=== PATIENT | female | born 1980 | race Caucasian/White ===

== ENCOUNTER 2021-10-17 07:14 | Outpatient (REF) | payer OTHER, SELFPAY ==
--- NOTE | ~2021-10-17 | XR_ITS ---
EXAMINATION: XR ANKLE, RIGHT CLINICAL INFORMATION: Pain. M25.571 COMPARISON: None TECHNIQUE: Right ankle is imaged in 4 views. FINDINGS: Normal bony mineralization. No fracture, dislocation, destructive process, or arthropathy. The malleoli are intact. The ankle mortise is symmetric. No joint narrowing or erosive change. The subtalar joint is unremarkable. XR/XR ankle RT min 3V IMPRESSION: No fracture, dislocation, or arthropathy.
== END 2021-10-17 07:15 | disposition home or self-care (01) ==
LOC: HO.HOSX 07:14
PROVIDERS: Visit Provider Physician Assistant
DX: S93.401A Sprain of unspecified ligament of right ankle, initial encounter (principal)
CPT/HCPCS: 73610

== ENCOUNTER 2021-10-22 16:28 | Outpatient (REF) | payer OTHER, SELFPAY ==
--- NOTE | ~2021-10-22 | MM_ITS ---
EXAMINATION: MM SCREENING DIGITAL BREAST TOMOSYNTHESIS, BILATERAL CLINICAL INFORMATION: Screening. Asymptomatic. The lifetime risk of breast cancer based on the Tyrer-Cuzick Model is 8.3%. COMPARISON: Mammography: None. TECHNIQUE: Digital breast tomosynthesis is performed in both the craniocaudal and mediolateral oblique views along with computer-aided detection (CAD). Synthesized 2D images are generated from the tomosynthesis. FINDINGS: There are scattered areas of fibroglandular density (ACR BI-RADS breast composition Category b). No abnormal mass or grouping of microcalcifications is seen within the right breast. Within the central upper outer aspect of the left breast there is a grouping of approximately 4 calcifications without linear or branching forms for which spot magnification views are recommended. MM/MM tomosynthesis screening BI IMPRESSION: Left breast calcifications for further evaluation with spot magnification views. ASSESSMENT: BI-RADS 0: Incomplete - Need Additional Imaging Evaluation RECOMMENDATION: 1. Additional views of the left breast. 2. Targeted ultrasound if warranted after review of the additional views. 3. Radiology department staff will contact the patient for additional imaging. This patient's information was entered into a reminder system with a target due date for their next mammogram.
== END 2021-10-22 16:29 | disposition home or self-care (01) ==
LOC: HO.MAMMO 16:28
PROVIDERS: PCP Nurse Practitioner Family; Visit Provider Nurse Practitioner Family
DX: Z12.31 Encounter for screening mammogram for malignant neoplasm of breast (principal)
CPT/HCPCS: 77063; 77067

== ENCOUNTER 2021-10-29 16:30 | Outpatient (REF) | payer OTHER, SELFPAY ==
--- NOTE | ~2021-10-29 | CT_ITS ---
EXAMINATION: CT CHEST WITHOUT CONTRAST CLINICAL INFORMATION: Other abnormalities of breathing. Difficulty breathing, bronchitis. COMPARISON: None TECHNIQUE: Multidetector volumetric CT imaging of the chest was done. Axial MIP volume rendering provided. Sagittal and coronal reformatted images were obtained. This CT examination was performed using dose optimization techniques as appropriate, variously including the following: *Automated exposure control *Adjustment of mA and/or kV according to patient size (this includes techniques or standardized protocols for targeted exams where dose is matched to indication/reason for exam; i.e. extremities or head) *Use of iterative reconstruction technique DLP: 204 mGy-cm FINDINGS: HONE OPERATOR: Unremarkable chest exam. LUNGS: The lungs are well expanded and clear of acute pneumonic process. There is no pulmonary nodule, mass or ground-glass density. There is lingular atelectasis. MEDIASTINUM: The thyroid lobes are symmetrical and normal. The central trachea and the bronchi are widely patent. No abnormal sized mediastinal or hilar lymph nodes are seen. There is no pericardial effusion. The heart size and the great vessels are normal caliber. PLEURA: There is no pleural effusion. No pleural mass or thickening. AXILLA: No lymphadenopathy. UPPER ABDOMEN: The visualized liver, spleen, pancreas, and bilateral adrenal glands are unremarkable. There is evidence of previous gastric bypass surgery changes. The visualized gallbladder, adrenal glands and kidneys are unremarkable. A small epigastric anterior abdominal wall hernia with fat within it is noted. OSSEOUS STRUCTURES: No lytic or sclerotic process seen. CT/CT chest wo con IMPRESSION: Unremarkable CT chest without contrast. Fleischner guidelines were followed.
== END 2021-10-29 16:31 | disposition home or self-care (01) ==
LOC: HO.CT 16:30
PROVIDERS: PCP Nurse Practitioner Family; Visit Provider Nurse Practitioner Family
DX: R06.89 Other abnormalities of breathing (principal)
CPT/HCPCS: 71250

== ENCOUNTER 2021-10-30 16:01 | Outpatient (REF) | payer OTHER, SELFPAY ==
--- NOTE | 2021-10-30 | PFT_ITS ---
FLOWS: FEV1 of 92% of predicted at 2.61 L. FVC 81% of predicted at 2.80 L. FEV1 to FVC ratio of 0.93. No bronchodilator response. LUNG VOLUMES: Total lung capacity 78% of predicted at 3.75 L. Residual volume 53% of predicted at 0.81 L. Slow vital capacity 90% of predicted at 2.94 L. Expiratory reserve volume 45% of predicted at 0.50 L. Diffusion capacity is normal. IMPRESSION: Mild restrictive ventilatory defect with no bronchodilator response. Decreased expiratory reserve volume suggests extrathoracic restriction likely secondary to abdominal obesity. Heraclio Blue MD AP/MODL / [id number]
== END 2021-10-30 16:02 | disposition home or self-care (01) ==
LOC: HO.RESP 16:01
PROVIDERS: PCP Nurse Practitioner Family; Visit Provider Nurse Practitioner Family
DX: R06.00 Dyspnea, unspecified (principal)
CPT/HCPCS: 94060; 94727; 94729

== ENCOUNTER → 2022-01-29 14:58 | Outpatient (REF) | payer OTHER, SELFPAY ==
--- NOTE | 2022-01-29 15:01 | CA_ITS ---
Transthoracic Echocardiogram Patient (Last, First, Middle): Kellen Hillman A Gender: Female Date of : 1980 Age: 41 Procedure Date: 01/29/2022 Procedure Type: Transthoracic Echocardiogram Location: OP Height: 157.48 cm Weight: 89.81 kg BSA: 1.90 m2 Heart Rate: bpm BP: 130 / 80 mmHg Environmental Monitoring Technician: SB Referring MD: Mono Menard MD Printing Assistant: Eder Vieyra MD Symptoms: I27.20 - Pulmonary hypertension, unspecified Study Quality: Adequate ECG Rhythm: Sinus Conclusions: - 1. Low normal LV systolic function with LVEF of 50-55% with normal diastolic filling 2. Trivial aortic regurgitation 3. Normal RV systolic pressure 4. No gross pericardial effusion Findings Left Ventricle Normal left ventricular cavity size. There is normal left ventricular wall thickness. The left ventricular systolic function is low normal. The visually estimated ejection fraction is between 50-55%. Spectral Doppler is indicative of a normal filling pattern. Possible basal inferior wall hypokinesis Right Ventricle Normal right ventricular cavity size and systolic function. Atria The left atrium is normal in size. There is lipomatous hypertrophy of the interatrial septum. Interatrial shunt cannot be excluded. The right atrium is normal in size. Aortic Valve Normal aortic valve structure and function. There is no aortic valve stenosis. There is trace (trivial) aortic valve regurgitation. Mitral Valve There is mild anterior and posterior mitral leaflet thickening. There is trace mitral valve regurgitation. There is no mitral valve stenosis. Pulmonic Valve The pulmonic valve is likely normal. There is trace pulmonic valve regurgitation. Tricuspid Valve Normal tricuspid valve structure. There is trace tricuspid valve regurgitation. The right ventricular systolic pressure is normal. The right ventricular systolic pressure is 24 mmHg. Normal right atrial pressure. There is no evidence of pulmonary hypertension. Great Vessels All visible segments of the aorta are normal in size. The visualized portions of the pulmonary artery and branches are normal. Venous The inferior vena cava is normal in size and collapses greater than 50% with inspiration. Pericardium/Pleural There is no evidence of pericardial effusion. Prior Study Comparison No significant change compared to prior study dated: 06/08/2012. Measurements 2D Linear Measurements IVSd: 1.13 0.6-0.9/0.6-1.0 cm LVIDd: 4.86 3.9-5.3/4.2-5.9 cm LVIDd Index: 2.56 2.4-3.2/2.2-3.1 cm/m2 LVIDs: 3.55 2.0-3.6 cm LVPWd: 1.03 0.7-1.1 cm LA Diam: 3.50 2.7-3.8/3.0-4.0 cm LAIDs Index: 1.84 1.5-2.3 cm/m2 LV Mass: 245.97 67-162/88-224 g LV Mass Index: 129.46 43-95/49-115 g/m2 2D Systolic Function EF 4C: 54.20 >55% EF 2C: 49.90 >55% EF BiP: 51.50 >55% Mitral Valve MV Pk E: 0.91 MV PK A: 0.76 MV Decel Time: 171.00 E/A: 1.20 E'Lateral: 7.83 E'Medial: 8.16 E/E' Med: 11.20 E/E' Lat: 11.60 PHT: 50.00 MVA PHT: 4.40 Decel [place]: 5.32 Aortic Valve AoV Pk Cole: 1.23 AoV Mn Cole: 0.86 AoV VTI: 0.22 AoV Pk Grad: 6.00 Aov Mn Grad: 3.00 LVOT LVOT Pk Cole: 0.76 LVOT Mn Cole: 0.52 LVOT VTI: 0.15 LVOT Pk Grad: 2.00 LVOT Mn Grad: 1.00 Diastolic Function MV Pk E: 0.91 MV Pk A: 0.76 E/A: 1.20 E'Medial: 8.16 E/E' Med: 11.20 E' Laterial: 7.83 E/E' Lat: 11.60 Right Ventricle TAPSE (mm): 14.10 TVS' Cole: 8.27 Tricuspid Valve TR Pk Cole: 1.99 TR Pk Grad: 16.00 RA Press: 8.00 RVSP: 24.00 Great Vessels Aorta Sinus of Valsalva: 3.80 2.0-3.5 cm Ao Asc: 3.40 2.1-3.4 cm Pulmonary Veins Pulm Vein S/D 1.00 Pulmonary Valve PV Pk Cole: 0.69 Peak PV Grad: 2.00 Updated in Other Vendor System with Status of Final Eder Azalia MD electronically signed on 01/30/2022 8:47:46 AM with status of Final
== END ==
LOC: HO.CARD 14:58
PROVIDERS: PCP Nurse Practitioner Family; Visit Provider Hospitalist
DX: I27.20 Pulmonary hypertension, unspecified (principal)
CPT/HCPCS: 93306

== ENCOUNTER 2022-03-20 15:58 | Outpatient (REF) | payer OTHER, SELFPAY ==
[2022-03-20 16:28] LABS: MANUAL DIFF FLAG NO
[2022-03-20 16:35] LABS: Basophils Absolute Auto 0.1 X10*3/uL (0.0-0.2); Basophils Percent Auto 0.7 % (0-2); Eosinophils Absolute Auto 0.2 X10*3/uL (0.0-0.4); Eosinophils Percent Auto 2.2 % (0-4); Hematocrit 31.3 % (37.0-47.0); Hemoglobin 9.4 g/dl (12.0-16.0); Imm Gran Abs Auto 0.03 X10*3/uL (0.00-0.03); Imm Gran Pct Auto 0.3 % (0.0-0.4); Lymphocytes Absolute Auto 2.2 X10*3/uL (1.2-4.9); Lymphocytes Percent Auto 24.6 % (20-40); Mean Corpuscular Hemoglobin 22.3 pg (27.0-33.0); Mean Corpuscular Volume 74.3 fL (80.0-98.0); Mean Platelet Volume 10.5 fL (9.4-12.3); Monocytes Absolute Auto 0.8 X10*3/uL (0.1-1.2); Monocytes Percent Auto 8.4 % (2-11); Neutrophils Absolute Auto 5.7 x10*3/uL (2.0-8.3); Neutrophils Percent Auto 63.8 % (45-73); Platelet Count 397 X10*3/uL (160-400); Red Blood Count 4.21 X10*6/uL (4.20-5.50); Red Cell Distribution Width 15.4 % (11.0-16.0)
[2022-03-20 16:41] LABS: D Dimer High Sensitivity 182 NG/ML
[2022-03-20 16:53] LABS: Anion Gap 11 (12-20); Blood Urea Nitrogen 18 mg/dL (9-16); Calcium 9.4 mg/dL (8.4-10.2); Carbon Dioxide 26 mmol/L (22-29); Chloride 104 mmol/L (96-108); Estimated Glomerular Filt Rate > 60; Glucose Random 95 mg/dL (60-115); Potassium 4.4 mmol/L (3.3-5.1); Sodium 137 mmol/L (135-145)
[2022-03-20 17:15] LABS: Erythrocyte Sedimentation Rate 31 MM/HR (0-20)
[2022-03-21 18:22] LABS: Scleroderma 70 Antibody <1.0 NEG AI (<1.0 NEG)
[2022-03-22 13:56] LABS: Anti Nuclear Antibody Screen NEGATIVE (NEGATIVE)
== END 2022-03-20 15:59 | disposition home or self-care (01) ==
LOC: HO.LAB 15:58
PROVIDERS: PCP Nurse Practitioner Family; Visit Provider Hospitalist
DX: J98.4 Other disorders of lung (principal); I27.20 Pulmonary hypertension, unspecified; R00.0 Tachycardia, unspecified; R06.00 Dyspnea, unspecified
CPT/HCPCS: 36415; 80048; 85025; 85379; 85652; 86038; 86039; 86235

== ENCOUNTER 2022-03-23 10:12 | Outpatient (REF) | payer OTHER, SELFPAY ==
[2022-03-23 11:10] LABS: MANUAL DIFF FLAG NO
[2022-03-23 11:19] LABS: Basophils Absolute Auto 0.1 X10*3/uL (0.0-0.2); Basophils Percent Auto 0.8 % (0-2); Eosinophils Absolute Auto 0.1 X10*3/uL (0.0-0.4); Eosinophils Percent Auto 1.9 % (0-4); Hematocrit 30.5 % (37.0-47.0); Hemoglobin 9.3 g/dl (12.0-16.0); Imm Gran Abs Auto 0.02 X10*3/uL (0.00-0.03); Imm Gran Pct Auto 0.3 % (0.0-0.4); Immature Retic Fraction 16.9 % (3.0-15.9); Lymphocytes Absolute Auto 1.5 X10*3/uL (1.2-4.9); Mean Corpuscular HGB Conc 30.5 g/dl (31.0-35.0); Mean Corpuscular Hemoglobin 22.4 pg (27.0-33.0); Mean Corpuscular Volume 73.5 fL (80.0-98.0); Mean Platelet Volume 10.7 fL (9.4-12.3); Monocytes Absolute Auto 0.8 X10*3/uL (0.1-1.2); Monocytes Percent Auto 11.2 % (2-11); Neutrophils Absolute Auto 4.7 x10*3/uL (2.0-8.3); Neutrophils Percent Auto 64.8 % (45-73); Platelet Count 378 X10*3/uL (160-400); Red Blood Count 4.15 X10*6/uL (4.20-5.50); Red Cell Distribution Width 15.5 % (11.0-16.0); Retic HGB Equivalent 26.1 pg (30.0-35.0); Reticulocyte Percent 1.3 % (0.5-1.8); Reticulocytes Absolute 0.052 X10*6/uL (0.026-0.095); White Blood Count 7.3 X10*3/uL (4.8-10.8)
[2022-03-23 12:28] LABS: Iron 30 mcg/dL (30-160); Percent Iron Saturation 7 % (15-50); Total Iron Binding Capacity 416 mcg/dL (228-428); Unsaturated Iron Binding 386 ug/dL
[2022-03-23 12:50] LABS: Ferritin 4 ng/mL (10-250)
[2022-03-23 13:02] LABS: Folate 10.3 ng/mL (> or = 4.0); Vitamin B12 210 pg/mL (200-900)
== END 2022-03-23 10:13 | disposition home or self-care (01) ==
LOC: HO.HMGCLDS 10:12
PROVIDERS: PCP Nurse Practitioner Family; Visit Provider Nurse Practitioner Family
DX: D64.9 Anemia, unspecified (principal)
CPT/HCPCS: 36415; 82607; 82728; 82746; 83540; 85025; 85045

== ENCOUNTER 2022-03-25 16:54 | Outpatient (REF) | payer OTHER, SELFPAY ==
[2022-03-26 07:45] LABS: FIT Int Ctl YES; FIT1 NEGATIVE (NEGATIVE); FIT2 NEGATIVE (NEGATIVE)
== END 2022-03-25 16:55 | disposition home or self-care (01) ==
LOC: HO.LNP 16:54
PROVIDERS: Visit Provider Nurse Practitioner Family
DX: D64.9 Anemia, unspecified (principal)
CPT/HCPCS: 82274

== ENCOUNTER → 2022-04-24 15:58 | Outpatient (REF) | payer OTHER, SELFPAY | LOC: HO.SL 15:58 | PROVIDERS: PCP Nurse Practitioner Family; Visit Provider Hospitalist | DX: G47.33 Obstructive sleep apnea (adult) (pediatric) (principal) | CPT/HCPCS: 95806 ==

== ENCOUNTER → 2022-06-27 14:27 | Outpatient (BNVA) | payer OTHER, SELFPAY | PROVIDERS: PCP Nurse Practitioner Family; Visit Provider Hospitalist | DX: Z13.89 Encounter for screening for other disorder (principal) ==

== ENCOUNTER 2022-10-25 13:38 | Outpatient (REF) | payer OTHER, SELFPAY ==
[2022-10-25 14:19] LABS: MANUAL DIFF FLAG NO
[2022-10-25 14:29] LABS: Basophils Absolute Auto 0.1 X10*3/uL (0.0-0.2); Basophils Percent Auto 0.9 % (0-2); Eosinophils Absolute Auto 0.2 X10*3/uL (0.0-0.4); Eosinophils Percent Auto 2.1 % (0-4); Hematocrit 32.5 % (37.0-47.0); Hemoglobin 9.7 g/dl (12.0-16.0); Imm Gran Abs Auto 0.03 X10*3/uL (0.00-0.03); Imm Gran Pct Auto 0.4 % (0.0-0.4); Lymphocytes Absolute Auto 1.8 X10*3/uL (1.2-4.9); Lymphocytes Percent Auto 23.4 % (20-40); Mean Corpuscular HGB Conc 29.8 g/dl (31.0-35.0); Mean Corpuscular Hemoglobin 22.3 pg (27.0-33.0); Mean Corpuscular Volume 74.7 fL (80.0-98.0); Mean Platelet Volume 10.4 fL (9.4-12.3); Monocytes Absolute Auto 0.6 X10*3/uL (0.1-1.2); Monocytes Percent Auto 8.1 % (2-11); Neutrophils Absolute Auto 5.1 x10*3/uL (2.0-8.3); Neutrophils Percent Auto 65.1 % (45-73); Platelet Count 421 X10*3/uL (160-400); Red Blood Count 4.35 X10*6/uL (4.20-5.50); Red Cell Distribution Width 17.4 % (11.0-16.0); White Blood Count 7.8 X10*3/uL (4.8-10.8)
[2022-10-25 15:09] LABS: Iron 16 mcg/dL (30-160); Percent Iron Saturation 5 % (15-50); Total Iron Binding Capacity 317 mcg/dL (228-428); Unsaturated Iron Binding 301 ug/dL
[2022-10-25 15:29] LABS: Ferritin 5 ng/mL (10-250); TSH reflex Free T4 2.05 uIU/mL (0.32-4.0)
== END 2022-10-25 13:39 | disposition home or self-care (01) ==
LOC: HO.LAB 13:38
PROVIDERS: PCP Nurse Practitioner Family; Visit Provider Hospitalist
DX: J45.909 Unspecified asthma, uncomplicated (principal); R00.0 Tachycardia, unspecified; D64.9 Anemia, unspecified; R06.00 Dyspnea, unspecified; J98.4 Other disorders of lung; G47.33 Obstructive sleep apnea (adult) (pediatric); U09.9 Post COVID-19 condition, unspecified
CPT/HCPCS: 36415; 82728; 83540; 84443; 85025

== ENCOUNTER 2022-10-29 16:00 | Outpatient (REF) | payer OTHER, SELFPAY ==
--- NOTE | ~2022-10-29 | MM_ITS ---
EXAMINATION: MM SCREENING DIGITAL BREAST TOMOSYNTHESIS, BILATERAL CLINICAL INFORMATION: Screening. Asymptomatic. The lifetime risk of breast cancer based on the Tyrer-Cuzick Model is 7%. COMPARISON: Mammography: 10/22/2021 (baseline) TECHNIQUE: Digital breast tomosynthesis is performed in both the craniocaudal and mediolateral oblique views along with computer-aided detection (CAD). Synthesized 2D images are generated from the tomosynthesis. Additional right MLO view is provided. FINDINGS: There are scattered areas of fibroglandular density (ACR BI-RADS breast composition Category b). There are no significant masses, abnormal calcifications, or other abnormalities. Parenchymal pattern is similar to prior exam. There are scattered stable bilateral minor asymmetries. No developing density or architectural abnormality. The axilla and skin contours are unremarkable. MM/MM tomosynthesis screening BI IMPRESSION: No mammographic evidence of malignancy. ASSESSMENT: BI-RADS 2: Benign RECOMMENDATION: Routine annual mammography screening. This patient's information was entered into a reminder system with a target due date for their next mammogram.
== END 2022-10-29 16:01 | disposition home or self-care (01) ==
LOC: HO.MAMMO 16:00
PROVIDERS: PCP Nurse Practitioner Family; Visit Provider Nurse Practitioner Family
DX: Z12.31 Encounter for screening mammogram for malignant neoplasm of breast (principal)
CPT/HCPCS: 77063; 77067

== ENCOUNTER → 2022-11-12 14:42 | Outpatient (BNV) | payer OTHER, SELFPAY | PROVIDERS: PCP Nurse Practitioner Family; Visit Provider Internal Medicine Medical Oncology | DX: D50.9 Iron deficiency anemia, unspecified (principal) | CPT/HCPCS: 99204; 99213 ==

== ENCOUNTER 2022-11-29 11:37 | Outpatient (REF) | payer OTHER, SELFPAY | END 2022-11-29 11:38 | disposition home or self-care (01) | LOC: HO.MDS 11:37 | PROVIDERS: Visit Provider Internal Medicine Medical Oncology | DX: D50.9 Iron deficiency anemia, unspecified (principal) | CPT/HCPCS: 96365; J1756 ==

== ENCOUNTER 2022-12-03 14:56 | Outpatient (REF) | payer OTHER, SELFPAY | END 2022-12-03 14:57 | disposition home or self-care (01) | LOC: HO.MDS 14:56 | PROVIDERS: Visit Provider Internal Medicine Medical Oncology | DX: D50.8 Other iron deficiency anemias (principal) | CPT/HCPCS: 96374; J1756 ==

== ENCOUNTER 2022-12-10 15:00 | Outpatient (REF) | payer OTHER, SELFPAY | END 2022-12-10 15:01 | disposition home or self-care (01) | LOC: HO.MDS 15:00 | PROVIDERS: Visit Provider Internal Medicine Medical Oncology | DX: D50.8 Other iron deficiency anemias (principal) | CPT/HCPCS: 96365; J1756 ==

== ENCOUNTER 2022-12-16 15:07 | Outpatient (REF) | payer OTHER, SELFPAY ==
[2022-12-16 15:37] LABS: MANUAL DIFF FLAG NO
[2022-12-16 15:41] LABS: Basophils Percent Auto 0.4 % (0-2); Eosinophils Absolute Auto 0.1 X10*3/uL (0.0-0.4); Eosinophils Percent Auto 1.1 % (0-4); Imm Gran Abs Auto 0.04 X10*3/uL (0.00-0.03); Imm Gran Pct Auto 0.6 % (0.0-0.4); Lymphocytes Absolute Auto 1.5 X10*3/uL (1.2-4.9); Lymphocytes Percent Auto 20.4 % (20-40); Mean Corpuscular HGB Conc 30.3 g/dl (31.0-35.0); Mean Corpuscular Hemoglobin 24.2 pg (27.0-33.0); Mean Corpuscular Volume 79.7 fL (80.0-98.0); Mean Platelet Volume 10.1 fL (9.4-12.3); Monocytes Absolute Auto 0.4 X10*3/uL (0.1-1.2); Monocytes Percent Auto 5.1 % (2-11); Neutrophils Absolute Auto 5.3 x10*3/uL (2.0-8.3); Neutrophils Percent Auto 72.4 % (45-73); Platelet Count 372 X10*3/uL (160-400); Red Blood Count 4.14 X10*6/uL (4.20-5.50); Red Cell Distribution Width 21.7 % (11.0-16.0); White Blood Count 7.3 X10*3/uL (4.8-10.8)
[2022-12-16 16:13] LABS: Ferritin 145 ng/mL (10-250)
== END 2022-12-16 15:08 | disposition home or self-care (01) ==
LOC: HO.MDS 15:07
PROVIDERS: Visit Provider Internal Medicine Medical Oncology
DX: D50.8 Other iron deficiency anemias (principal)
CPT/HCPCS: 36415; 82728; 85025; 96365; J1756

== ENCOUNTER 2022-12-23 11:31 | Outpatient (AMB) | payer OTHER, SELFPAY ==
[2022-12-23 11:34] VITALS: BP 124/88; PULSE 68; O2SAT 98; BMI 30.6
--- NOTE | 2022-12-23 11:34 | MHC.PC.OV ---
Vital Signs 12/23/22 11:34 Height 5 ft 2 in Weight 167 lb 4 oz BMI 30.6 BP 124/88 Blood Pressure Location Rt brachial Position Sitting Pulse 68 Pulse Source Pulse Oximeter Pulse Oximetry (%) 98 Oxygen Delivery Method Room Air Intake Visit Reasons: Annual PE Follow up on labs Allergies sumatriptan [Imitrex] Allergy (Unknown, Verified 12/23/22 11:37) tachycardia tramadol [Ultram] Allergy (Unknown, Verified 12/23/22 11:37) nausea Tobacco use date assessed: 12/23/22 Dental Screening Dental Screen Date: 12/23/22 Did you have a dental visit in the last 12 months?: Yes Did you have a dental problem in the last 6 months where you did not have access to dental care?: No Was dental information given to patient?: Patient has dentist HPI Annual PE Follow up on labs HPI Details Pt is here for a PE. Will order labs. Mammo is up to date. 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 Pt is following up with hematology (ongoing iron def anemia) and pulmonology. [facility] Medical History Chronic restrictive lung disease Dyspnea High blood pressure Surgical History H/O gastric bypass Family History Maternal Uncle Substance use disorder Maternal Aunt Substance use disorder Paternal Aunt Substance use disorder Paternal Uncle Substance use disorder Social History Housing: House Patient Tobacco Use Status: Former Tobacco user Quit Date: quit 17 years ago e-Cigarette/Vaping Use: Never Used Second Hand Smoke Exposure: No service: No Current occupational status: employed Current occupation: [employer] Current occupational exposures/hazards: No Cognitive needs: No Hearing needs: No Vision needs: No Questionnaire AUDIT C Alcohol Use Questionnaire (AUDIT-C) 1. How often do you have a drink containing alcohol?: Monthly or less 2. How many drinks containing alcohol do you have on a typical day when you are drinking?: 3 or 4 3. How often do you have six or more drinks on one occasion?: Less than monthly Total Score: 3 MARY ELLEN-7 AMB Questionnaire MARY ELLEN-7 Feeling nervous, anxious, or on edge: 0 = Not at all Not being able to stop or control worryin = Not at all Worrying too much about different things: 0 = Not at all Trouble relaxin = Not at all Being so restless that it is hard to sit still: 1 = Several days Becoming easily annoyed or irritable: 0 = Not at all Feeling afraid as if something awful might happen: 0 = Not at all Total MARY ELLEN-7 score (0-4 normal; 5-9 mild; 10-14 moderate; 15-21 severe): 1 Source: Developed by Drs. Jesse Singleton, Muna Cain, Wood Vega and colleagues, with an educational meg from [employer]. Review of Systems Const Denies chills and Denies fever(s) Eyes Denies blurry vision ENT Denies vertigo, Denies dizziness and Denies sore throat Card Denies chest pain at rest, Denies chest pain with activity, Denies diaphoresis, Denies dyspnea and Denies dyspnea on exertion Resp Denies cough, Denies dyspnea, Denies dyspnea on exertion and Denies wheezing GI Denies abdominal pain, Denies melena, Denies hematochezia, Denies constipation, Denies diarrhea and Denies loose stools Denies hematuria Musc Denies numbness and Denies tingling Skin/Breast Denies lesions Neuro Denies vertigo, Denies dizziness, Denies numbness and Denies tingling Psych Denies anxiety, Denies depression, Denies homicidal ideation, Denies suicidal ideation and Denies other (substance abuse) Aller/Immun Denies wheezing Physical exam (Primary Care) Vital Signs: Last Vital Signs Pulse 68 12/23/22 11:34 BP 124/88 12/23/22 11:34 Pulse Ox 98 12/23/22 11:34 Oxygen Delivery Method Room Air 12/23/22 11:34 BMI result Body Mass Index 30.6 Tobacco/Smoking Status: Tobacco use Status Tobacco use date assessed 12/23/22 12/23/22 11:42 Patient Tobacco Use Status Former Tobacco user 12/23/22 11:42 e-Cigarette/Vaping Use Never Used 12/23/22 11:42 Const General: cooperative Nutritional Appearance: well nourished Orientation/consciousness: patient oriented x3 HENMT Head: Yes normal to inspection, Yes normocephalic and Yes atraumatic Ears: TM's normal bilaterally Eyes General: appearance normal, both eyes and all related structures Alignment and Position: alignment normal and position normal Neck Neck: Yes normal visual inspection and Yes no lymphadenopathy Thyroid: Thyroid normal Resp Effort & Inspection: normal respiratory effort Auscultation: clear to auscultation bilaterally Cardio Rate: regular rate Rhythm: regular rhythm Heart sounds: S1 normal heart sound present, S2 normal heart sound present and no murmurs GI Palpation (GI): Soft to palpation and nontender Auscultation: normal bowel sounds Skin Rashes: no rashes Neuro General: patient oriented x3, moves all extremities, no focal motor deficits and deep tendon reflexes 2+ bilaterally Romberg Test: Negative Psych Appearance: grossly normal Mental Status: mental status grossly normal Speech and movement: Normal speech and movement present Affect: normal affect Attitude: cooperative Thought process: Normal thought process present Thought content: Normal thought content present Insight: Good insight present (Psych) Judgement: Good judgement present (Psych) Assessment and Plan Assessment & Plan (1) Physical exam: Code(s): Z00.00 - Encounter for general adult medical examination without abnormal findings Plan: Labs ordered Plan The patient agreed to the use of a medical billing instructor for this encounter. Scribed for ASHLIE Martinez by Minerva Hung medical billing instructor, on 12/23/2022 at 11:45 EST. Coding Level of Care Code Est Pt Prev Care 40-64y(49774) Diagnoses Physical exam Z00.00
== END 2022-12-23 12:00 | disposition home or self-care (01) ==
PROVIDERS: PCP Nurse Practitioner Family; Visit Provider Nurse Practitioner Family
DX: Z00.00 Encounter for general adult medical examination without abnormal findings (principal)
CPT/HCPCS: 99396

== ENCOUNTER 2022-12-23 15:03 | Outpatient (REF) | payer OTHER, SELFPAY | END 2022-12-23 15:04 | disposition home or self-care (01) | LOC: HO.MDS 15:03 | PROVIDERS: Visit Provider Internal Medicine Medical Oncology | DX: D50.8 Other iron deficiency anemias (principal) | CPT/HCPCS: 96365; J1756 ==

== ENCOUNTER 2022-12-31 15:00 | Outpatient (REF) | payer OTHER, SELFPAY | END 2022-12-31 15:01 | disposition home or self-care (01) | LOC: HO.MDS 15:00 | PROVIDERS: Visit Provider Internal Medicine Medical Oncology | DX: D50.8 Other iron deficiency anemias (principal) | CPT/HCPCS: 96365; J1756 ==

== ENCOUNTER 2023-01-07 15:02 | Outpatient (REF) | payer OTHER, SELFPAY | END 2023-01-07 15:03 | disposition home or self-care (01) | LOC: HO.MDS 15:02 | PROVIDERS: Visit Provider Internal Medicine Medical Oncology | DX: D50.8 Other iron deficiency anemias (principal) | CPT/HCPCS: 96365; J1756 ==

== ENCOUNTER 2023-01-14 14:56 | Outpatient (REF) | payer OTHER, SELFPAY ==
[2023-01-14 16:09] LABS: MANUAL DIFF FLAG NO
[2023-01-14 16:10] LABS: Basophils Percent Auto 0.7 % (0-2); Eosinophils Absolute Auto 0.1 X10*3/uL (0.0-0.4); Eosinophils Percent Auto 2.5 % (0-4); Hematocrit 34.1 % (37.0-47.0); Hemoglobin 10.9 g/dl (12.0-16.0); Imm Gran Abs Auto 0.01 X10*3/uL (0.00-0.03); Imm Gran Pct Auto 0.2 % (0.0-0.4); Lymphocytes Absolute Auto 1.4 X10*3/uL (1.2-4.9); Lymphocytes Percent Auto 24.6 % (20-40); Mean Corpuscular Hemoglobin 26.6 pg (27.0-33.0); Mean Corpuscular Volume 83.2 fL (80.0-98.0); Mean Platelet Volume 10.5 fL (9.4-12.3); Monocytes Absolute Auto 0.4 X10*3/uL (0.1-1.2); Monocytes Percent Auto 6.8 % (2-11); Neutrophils Absolute Auto 3.7 x10*3/uL (2.0-8.3); Neutrophils Percent Auto 65.2 % (45-73); Platelet Count 314 X10*3/uL (160-400); Red Cell Distribution Width 21.1 % (11.0-16.0); White Blood Count 5.6 X10*3/uL (4.8-10.8)
[2023-01-14 16:45] LABS: Ferritin 201 ng/mL (10-250)
== END 2023-01-14 14:57 | disposition home or self-care (01) ==
LOC: HO.MDS 14:56
PROVIDERS: Visit Provider Internal Medicine Medical Oncology
DX: D50.8 Other iron deficiency anemias (principal)
CPT/HCPCS: 36415; 82728; 85025; 96365; J1756

== ENCOUNTER 2023-03-28 15:35 | Outpatient (AMB) | payer OTHER, SELFPAY ==
[2023-03-28 15:40] VITALS: PULSE 81; O2SAT 96; BMI 28.5
--- NOTE | 2023-03-28 15:40 | MHC.OFFVIS ---
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 The patient states that back in April 2020 she developed COVID-19. Her course was not severe and she recovered quickly. However, she noticed increasing shortness of breath. She also noticed increasing tachycardia. Her symptoms are usually worse when she is going up an incline or going up stairs. Usually she has to stop and catch her breath. Her symptoms are gotten to the point that they have been limiting her activities of daily living even cleaning her house. This is been very concerning for the patient. In view of the fact that she has not made any improvements she was referred to Pulmonary. She has tried a rescue inhaler without any significant improvement. The patient did undergo a CT scan of the chest sometime in October 2021 that was personally by me. It was a limited noncontrast CT scan. She did have some atelectasis in the lingula but just minimal. None of to explain her ongoing symptoms. The patient also appeared to have a dilated pulmonary trunk. However, this was difficult to assess because this was done without contrast in that area was not very clear. During the visit we also went for a 6 minutes walk test. Was reassuring that her pulse ox stayed around 99-98% with activity. Even after walking about 300 ft. However, the patient became more symptomatic with dyspnea as a heart rate increased. By the end of the ambulation the patient's arm was already 145. Her distance score is 7/10. The patient rested and the patient's heart rate did improve to the the 90s after couple minutes. The patient denies having history of any blood clots and denies any history of any pulmonary hypertension. Her other history includes multiple surgical interventions for surgical weight loss. She did have a lap band the resulting significant reflux disease and aspiration. The patient ultimately had a revision of the lap band and as she continued having difficulties she underwent gastric bypass surgery. Surgery was effective in improving all the adverse effects that she had from the lap band. She denies any significant reflux disease. Although she does take a PPI to minimize her symptoms. 03/15/2022 the patient is here for a pulmonary follow-up visit. Since we last spoke she continues to be about the same. Complains of significant dyspnea on exertion. She does have a very elevated heart rate when she monitor that with her smart watch. the patient did undergo an echocardiogram demonstrating a low normal ejection fraction. The patient also has some slight hypokinesia noted. She was not able to perform the cardiopulmonary exercise test since the machine was at a commission. She would like to get this done as soon as possible. Will consider other hospitals. We can also consider a stress echo or cardiology evaluation. In the meantime the patient does complaint of daytime drowsiness. Her [place] score is elevated 12/24. She does have significant snoring documented by her significant other. therefore, will also request a sleep study at this time. She will continue to try to exercise and monitoring heart rate to try to keep it around 120. 06/27/2022 the patient is here for pulmonary follow-up visit. The patient recently recovered from COVID-19. She felt that the 2nd time getting COVID worsen the 1st. She did have significant chest congestion and cough. Denies fevers. Now she is getting back to her baseline. Her cough is better overall. However, she does complain of her significant dyspnea on exertion. She has tried a rescue inhaler with albuterol but it causes significant tremulousness and shakiness and she does not like it. Even if she does 1 puff he still gets very uncomfortable. The patient does have some issues with daytime drowsiness. Her [place] score is elevated at over 24. She does have significant snoring. She did have a home sleep study which demonstrated an AHI of 5.1 which is slightly abnormal. Clinically the patient is feeling better overall and she is going to work on positional therapy. The patient also underwent a cardiopulmonary exercise tolerance test. Finally was scheduled because of the machine that was not working at [facility]. However, I do not have those results as of yet. I will call her once available. 10/28/2022 the patient is here for a pulmonary follow-up visit. The patient continues to have dyspnea on exertion. Also continues to have significant tachycardia. She did undergo a cardiopulmonary exercise study at [facility]. They noticed that there was a respiratory limitations at the higher levels of exercise. The patient does have significant anemia. Therefore affecting gas exchange which I do believe that may be the case when she is at the high levels of exercise. Heart rate continues to be elevated which could be from the anemia and also post COVID syndrome. The patient did have blood work including a ferritin level which was still significantly low even while taking oral iron. She had GI studies as well though she had not had any endoscopies. I do believe that based on the fact the patient is taking iron does no obvious bleeding will refer to hematology for potential IV Iron. 03/28/2023 the patient is here for pulmonary follow-up visit. Overall she is doing a little better. She still complains of the dyspnea on exertion. That has not changed much. The patient was evaluated by Hematology and has received a total of 80 infusions with IVR. She does does have sort well. Her hemoglobin is finally better. Although she still having some difficulty with her breathing. We did again review her echocardiogram demonstrating a low normal ejection fracture 50%. Therefore will repeat does sometime in the summer of 2023 after she continues exercise and weight management and then will see if that is change or hopefully improved. The patient also had this cardiopulmonary exercise tolerance test we did talk about it. It appears that she may have some limited exercise capacity and a component of ventilatory limitation. To some degree could be related to will some difficulties after having COVID. Will follow up sometime in the summer after her echocardiogram. 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 Current occupational exposures/hazards: No Cognitive needs: No Hearing needs: No Vision needs: No Review of Systems Const Denies chills and Denies fever(s) Eyes Denies change in vision ENT Denies change in voice Card Denies chest pain, Reports palpitations and Reports dyspnea on exertion Resp Reports cough, Reports dyspnea on exertion and Denies wheezing GI Reports heartburn Musc Reports no additional complaints Skin/Breast Denies rash Neuro Reports no additional complaints Endo Reports palpitations Aller/Immun Denies wheezing Physical Exam Vital Signs: Last Vital Signs Pulse 81 03/28/23 15:40 Pulse Ox 96 03/28/23 15:40 Oxygen Delivery Method Room Air 03/28/23 15:40 BMI result Body Mass Index 28.5 Const General: comfortable Orientation/consciousness: patient oriented x3 HEENT Head: Yes normal to inspection Eyes General: appearance normal, both eyes and all related structures Neck Neck: Yes supple Chest Chest palpation & inspection: normal inspection of the chest Resp Effort & Inspection: normal respiratory effort Auscultation: clear to auscultation bilaterally and no wheezes Cardio Rate: tachycardic Rhythm: regular rhythm Heart sounds: S1 normal heart sound present and S2 normal heart sound present GI Inspection: Yes normal to inspection Neuro General: patient oriented x3 Extrem General: Yes no clubbing, cyanosis or edema Assessment & Plan Assessment & Plan (1) Post-COVID syndrome: Code(s): U09.9 - Post COVID-19 condition, unspecified (2) Dyspnea: Code(s): R06.00 - Dyspnea, unspecified Qualifiers: Dyspnea type: dyspnea on exertion Qualified Code(s): R06.09 - Other forms of dyspnea (3) Tachycardia: Code(s): R00.0 - Tachycardia, unspecified (4) Chronic restrictive lung disease: Code(s): J98.4 - Other disorders of lung (5) ROXANA (obstructive sleep apnea): Comment: AHI 5.1 Code(s): G47.33 - Obstructive sleep apnea (adult) (pediatric) (6) Anemia: Code(s): D64.9 - Anemia, unspecified Qualifiers: Anemia type: iron deficiency Iron deficiency anemia type: unspecified iron deficiency Qualified Code(s): D50.9 - Iron deficiency anemia, unspecified Plan continue Xopenex as needed Very mild ROXANA, positional therapy for now repeat ECHO in the summer 2023 to reassess LVFx follow-up in the Summer 2023 Orders: Orders CA echo transthoracic complete 11/12/23 I27.20 - Pulmonary hypertension, unspecified, R06.00 - Dyspnea, unspecified Coding Level of Care Code Est Pt Level 4 (14475) Diagnoses Post-COVID syndrome U09.9 Dyspnea on exertion R06.09 Dyspnea type: dyspnea on exertion Tachycardia R00.0 Chronic restrictive lung disease J98.4 ROXANA (obstructive sleep apnea) G47.33 Iron deficiency anemia, unspecified iron deficiency anemia type D50.9 Anemia type: iron deficiency Iron deficiency anemia type: unspecified iron deficiency Time Spent (min) 17
== END 2023-03-31 09:24 | disposition home or self-care (01) ==
PROVIDERS: PCP Nurse Practitioner Family; Visit Provider Hospitalist
DX: U09.9 Post COVID-19 condition, unspecified (principal); R06.09 Other forms of dyspnea; R00.0 Tachycardia, unspecified; J98.4 Other disorders of lung; G47.33 Obstructive sleep apnea (adult) (pediatric); D50.9 Iron deficiency anemia, unspecified
CPT/HCPCS: 99214

== ENCOUNTER → 2023-03-28 15:35 | Outpatient (BNVA) | payer OTHER, SELFPAY | PROVIDERS: PCP Nurse Practitioner Family; Visit Provider Hospitalist | DX: J45.909 Unspecified asthma, uncomplicated (principal); D64.9 Anemia, unspecified; R00.0 Tachycardia, unspecified ==

== ENCOUNTER 2024-01-20 12:30 | Outpatient (AMB) | payer OTHER, SELFPAY ==
[2024-01-20 12:33] VITALS: BP 132/80; PULSE 82; O2SAT 99; BMI 26.7
--- NOTE | 2024-01-20 12:33 | A.OFFPC_ITS ---
Vital Signs 01/20/24 12:33 Height 5 ft 2 in Weight 146 lb BMI 26.7 BP 132/80 Blood Pressure Location Rt brachial Position Sitting Pulse 82 Pulse Source Pulse Oximeter Pulse Oximetry (%) 99 Intake Visit Reasons: PE with labs Intake Note: pt is here for physical exam Medical Coding Specialist Required: No Accompanied by: Self / Same As Patient Allergies sumatriptan [Imitrex] Allergy (Unknown, Verified 01/20/24 12:34) tachycardia tramadol [Ultram] Allergy (Unknown, Verified 01/20/24 12:34) nausea Medication List - Last Reconciled 01/20/24 by ASHLIE Flores albuterol sulfate 90 mcg/actuation 2 puffs inhalation Q6H PRN fluticasone propionate 110 mcg/actuation (Flovent HFA) 2 puffs inhalation DAILY 30 days levalbuterol tartrate 45 mcg/actuation (Xopenex HFA) 2 puffs inhalation Q6H PRN 30 days lisinopril 30 mg PO DAILY pantoprazole 40 mg PO DAILY propranolol 10 mg PO BID 90 days Tobacco use date assessed: 01/20/24 Dental Screening Dental Screen Date: 01/20/24 Did you have a dental visit in the last 12 months?: Yes Did you have a dental problem in the last 6 months where you did not have access to dental care?: No Was dental information given to patient?: Patient has dentist HPI PE with labs HPI Details Pt is here for a PE. Will order labs. 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 Due for mammo, will order. Pt c/o insomnia. She has tried melatonin which does not help. Will send trazodone. Pt believes she may have ADD/ADHD. She reports that this is affecting her work life. Will have team speak with pt regarding evaluation/ treatment. [facility] Medical History Chronic restrictive lung disease Dyspnea High blood pressure Surgical History H/O gastric bypass Family History Maternal Uncle Substance use disorder Maternal Aunt Substance use disorder Paternal Aunt Substance use disorder Paternal Uncle Substance use disorder Social History Housing: House Patient Tobacco Use Status: Former Tobacco user e-Cigarette/Vaping Use: Never Used Second Hand Smoke Exposure: No service: No Current occupational status: employed Current occupation: [employer] rt hand Current occupational exposures/hazards: No Cognitive needs: No Hearing needs: No Vision needs: No Questionnaire PHQ-9 Over the last 2 weeks, how often have you been bothered by any of the following problems? 1. Little interest or pleasure in doing things: not at all 2. Feeling down, depressed, or hopeless: not at all 3. Trouble falling or staying asleep, or sleeping too much: several days 4. Feeling tired or having little energy: not at all 5. Poor appetite or overeating: not at all 6. Feeling bad about yourself - or that you are a failure or have let yourself or your family down: not at all 7. Trouble concentrating on things, such as reading the newspaper or watching television: several days 8. Moving or speaking so slowly that other people could have noticed. Or the opposite - being so fidgety or restless that you have been moving around a lot more than usual: not at all 9. Thoughts that you would be better off or of hurting yourself in some way: not at all Total score: 2 Depression Screening Interpretation: Negative Depression Screening Done: Yes 04460 - PHQ-9 Billing: Yes Source: Developed by Drs. Jesse Singleton, Muna Cain, Wood Vega and colleagues, with an educational meg from [employer]. Thrive Questionnaire Date Thrive assessed: 12/22/23 I am a: Patient What is your living situation today?: I have a steady place to live Within the past 12 months, did the food you bought not last and you didn't have the money to get more?: Never true Within the past 12 months, did you worry whether your food would run out before you got money to buy more?: Never true Do you have trouble paying for medicines?: No Do you have trouble getting transportation to medical appointments?: No Do you have trouble paying your heating and electricity bill?: No Do you have trouble taking care of your child, family member or friend?: No Do you have trouble with day-to-day activities such as bathing, preparing meals, shopping, managing finances, etc.?: No Are you currently unemployed and looking for a job?: No Are you interested in more education?: No Please select the resources that you would like help with: None Currently or been in a relationship where the following occur: No concerns reported THRIVE Score: 0 AUDIT C Alcohol Use Questionnaire (AUDIT-C) 1. How often do you have a drink containing alcohol?: Monthly or less 2. How many drinks containing alcohol do you have on a typical day when you are drinking?: 3 or 4 3. How often do you have six or more drinks on one occasion?: Never Total Score: 2 Score Reviewed/Action Taken: Yes MARY ELLEN-7 AMB Questionnaire MARY ELLEN-7 Date MARY ELLEN - 7 assessed: 01/20/24 Feeling nervous, anxious, or on edge: 0 = Not at all Not being able to stop or control worryin = Not at all Worrying too much about different things: 0 = Not at all Trouble relaxin = Not at all Being so restless that it is hard to sit still: 0 = Not at all Becoming easily annoyed or irritable: 0 = Not at all Feeling afraid as if something awful might happen: 0 = Not at all Total MARY ELLEN-7 score (0-4 normal; 5-9 mild; 10-14 moderate; 15-21 severe): 0 Source: Developed by Drs. Jesse Singleton, Muna Cain, Wood Vega and colleagues, with an educational meg from [employer]. MARY ELLEN-7 Assessment Billing MARY ELLEN-7 Assessment Tool: MARY ELLEN-7 Assessment 01351 Review of Systems Const Denies chills and Denies fever(s) Eyes Denies blurry vision ENT Denies vertigo, Denies dizziness and Denies sore throat Card Denies chest pain at rest, Denies chest pain with activity, Denies diaphoresis, Denies dyspnea and Denies dyspnea on exertion Resp Denies cough, Denies dyspnea, Denies dyspnea on exertion and Denies wheezing GI Denies abdominal pain, Denies melena, Denies hematochezia, Denies constipation, Denies diarrhea and Denies loose stools Denies hematuria Musc Denies numbness and Denies tingling Skin/Breast Denies lesions Neuro Denies vertigo, Denies dizziness, Denies numbness and Denies tingling Psych Denies anxiety, Denies depression, Denies homicidal ideation, Denies suicidal ideation and Denies other (substance abuse) Aller/Immun Denies wheezing Physical exam (Primary Care) Vital Signs: Last Vital Signs Pulse 82 01/20/24 12:33 BP 132/80 01/20/24 12:33 Pulse Ox 99 01/20/24 12:33 BMI result Body Mass Index 26.7 Tobacco/Smoking Status: Tobacco use Status Tobacco use date assessed 01/20/24 01/20/24 12:35 Patient Tobacco Use Status Former Tobacco user 01/20/24 12:35 e-Cigarette/Vaping Use Never Used 01/20/24 12:35 PHQ-9: PHQ-9 Score PHQ-9: Total score 2 01/20/24 12:50 Depression Screening Interpretation: Negative Thrive Assessment: Date of Thrive Assessment Date Thrive assessed 12/22/23 01/20/24 12:35 Currently or been in a relationship where the following occur: No concerns reported Const General: cooperative Nutritional Appearance: well nourished Orientation/consciousness: patient oriented x3 HENMT Head: Yes normal to inspection, Yes normocephalic and Yes atraumatic Ears: TM's normal bilaterally Eyes General: appearance normal, both eyes and all related structures Alignment and Position: alignment normal and position normal Neck Neck: Yes normal visual inspection, Yes no lymphadenopathy and Yes supple Resp Effort & Inspection: normal respiratory effort Auscultation: clear to auscultation bilaterally Cardio Rate: regular rate Rhythm: regular rhythm Heart sounds: S1 normal heart sound present, S2 normal heart sound present and no murmurs GI Palpation (GI): Soft to palpation and nontender Auscultation: normal bowel sounds Skin Rashes: no rashes Neuro General: patient oriented x3, moves all extremities, no focal motor deficits and deep tendon reflexes 2+ bilaterally Romberg Test: Negative Psych Appearance: grossly normal Mental Status: mental status grossly normal Speech and movement: Normal speech and movement present Affect: normal affect Attitude: cooperative Thought process: Normal thought process present Thought content: Normal thought content present Insight: Good insight present (Psych) Judgement: Good judgement present (Psych) Assessment and Plan Assessment & Plan (1) Physical exam: Code(s): Z00.00 - Encounter for general adult medical examination without abnormal findings Plan: Labs ordered (2) Insomnia: Code(s): G47.00 - Insomnia, unspecified Plan: trazodone sent Plan The patient agreed to the use of a medical billing instructor for this encounter. Scribed for ASHLIE Martinez by Minerva Hung medical billing instructor, on 01/20/2024 at 12:50 EST. Orders: Orders MM screening mammo BI Today Z12.31 - Encounter for screening mammogram for malignant neoplasm of breast Medications: New trazodone 50 mg PO BEDTIME 30 days PRN 30 tabs 0RF sleep Coding Level of Care Code Est Pt Prev Care 40-64y(70792) Diagnoses Physical exam Z00.00 Insomnia G47.00 Additional Codes MARY ELLEN-7 Assessment Billing - MARY ELLEN-7 Assessment Tool: MARY ELLEN-7 Assessment [id number] ([id number])
== END 2024-01-20 13:33 | disposition home or self-care (01) ==
PROVIDERS: PCP Nurse Practitioner Family; Visit Provider Nurse Practitioner Family
DX: Z00.00 Encounter for general adult medical examination without abnormal findings (principal); G47.00 Insomnia, unspecified
CPT/HCPCS: 99396

== ENCOUNTER 2024-01-26 13:40 | Outpatient (AMB) | payer OTHER, SELFPAY ==
--- NOTE | 2024-01-26 14:04 | AM.OFFWIN_ITS ---
Intake Vital Signs 01/26/24 14:06 01/26/24 14:08 Height 5 ft 2 in Weight 147 lb BMI 26.9 BP 160/100 H 156/100 H Blood Pressure Location Rt brachial Lt brachial Position Sitting Sitting Pulse 72 Pulse Source Pulse Oximeter Pulse Oximetry (%) 98 Oxygen Delivery Method Room Air Intake Visit Reasons: EP Headaches, palpitations due to BP Intake Note: Patient here for elevated BP since Friday night. Throbbing headaches and palpitations. Patient Tobacco Use Status: Former Tobacco user Allergies sumatriptan [Imitrex] Allergy (Unknown, Verified 01/26/24 14:06) tachycardia tramadol [Ultram] Allergy (Unknown, Verified 01/26/24 14:06) nausea Do you need a note to return to daycare/school/sports/work: No HPI HPI Comments History of Present Illness Details Patient is a 43-year-old female complaining of headaches when her blood pressure rises. She states that she typically does not check her blood p ressure but she knows in the past, she gets neck pain and headaches when her blood pressure reaches a certain number. And she began to have the headaches and neck pain last Friday morning. So she checked her blood pressure and it was in the 170s systolic and 110s diastolic. She admits she was not really great about taking her medications but she started taking both her lisinopril 30 mg and propranolol 10 mg twice a day starting 5 days ago. She states she has been checking her blood pressure regularly and it has come down a little bit but she still has the headaches. Patient states she recently lost 70 lb and used to be on hydrochlorothiazide as well but she has since stopped taking that medication and her blood pressure has always been in the 120's systolic. 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 Current occupational exposures/hazards: No Cognitive needs: No Hearing needs: No Vision needs: No Review of Systems Const All systems reviewed & are unremarkable except as noted in HPI and below Physical Exam Vital Signs: Last Vital Signs Pulse 72 01/26/24 14:06 BP 156/100 H 01/26/24 14:08 Pulse Ox 98 01/26/24 14:06 Oxygen Delivery Method Room Air 01/26/24 14:06 BMI result Body Mass Index 26.9 Const General: cooperative, healthy appearing, comfortable, no acute distress and well developed Orientation/consciousness: patient oriented x3 Limitations: no limitations HEENT Head: Yes normal to inspection Ears: hearing grossly normal bilaterally General nose exam: Normal external nose present Face and sinus: Yes normal facial exam Eyes General: appearance normal, both eyes and all related structures Neck Neck: Yes normal visual inspection and Yes full ROM Resp Effort & Inspection: normal respiratory effort and able to speak in complete sentences Skin General skin exam: no rashes or lesions noted Neuro General: patient oriented x3 Extrem General: Yes normal to inspection Assessment & Plan Assessment & Plan (1) Elevated blood pressure reading with diagnosis of hypertension: Code(s): I10 - Essential (primary) hypertension Plan: Gave patient guidelines on blood pressure goals, recommended she increase to 40 mg of lisinopril daily and track her blood pressures and her symptoms. If it remains elevated anterior remains symptomatic, she knows to go to the emergency department for a thorough workup and further management. However, if increasing the medication resolves her symptoms and her blood pressure comes down to a healthy range, she should continue the 40 mg and follow up with her PCP next week. If it falls below a certain threshold which I wrote down for her, she should call her PCP and go back to the 30 mg lisinopril. Advised if her headache gets worse, she should go to the emergency department. Spoke with patient's MA for her PCP, she will schedule her for a 15 minute follow-up in the next 7-10 days. Plan See above Medications: New lisinopril 40 mg PO DAILY 10 tabs 0RF Coding Level of Care Code Est Pt Level 4 (27512) Diagnoses Elevated blood pressure reading with diagnosis of hypertension I10
[2024-01-26 14:06] VITALS: BP 160/100; PULSE 72; O2SAT 98; BMI 26.9
[2024-01-26 14:08] VITALS: BP 156/100
== END 2024-01-26 14:45 | disposition home or self-care (01) ==
PROVIDERS: PCP Nurse Practitioner Family; Visit Provider Physician Assistant
DX: I10 Essential (primary) hypertension (principal)
CPT/HCPCS: 99214

== ENCOUNTER 2024-02-03 14:12 | Outpatient (AMB) | payer OTHER, SELFPAY ==
--- NOTE | 2024-02-03 14:17 | MHC.PC.OV ---
Vital Signs 02/03/24 14:21 02/03/24 15:04 02/03/24 15:04 Height 5 ft 2 in Weight 144 lb BMI 26.3 BP 150/102 H 140/112 H 140/100 H Blood Pressure Location Rt brachial Lt brachial Rt brachial Position Sitting Sitting Sitting Pulse 74 Pulse Source Pulse Oximeter Pulse Oximetry (%) 98 Oxygen Delivery Method Room Air Intake Visit Reasons: f/u walk in - BP Allergies sumatriptan [Imitrex] Allergy (Unknown, Verified 02/03/24 16:43) tachycardia tramadol [Ultram] Allergy (Unknown, Verified 02/03/24 16:43) nausea Medication List - Last Reconciled 02/03/24 by MITCHELL FloresP- albuterol sulfate 90 mcg/actuation 2 puffs inhalation Q6H PRN amlodipine 2.5 mg PO DAILY fluticasone propionate 110 mcg/actuation (Flovent HFA) 2 puffs inhalation DAILY 30 days levalbuterol tartrate 45 mcg/actuation (Xopenex HFA) 2 puffs inhalation Q6H PRN 30 days lisinopril 40 mg PO DAILY pantoprazole 40 mg PO DAILY propranolol 20 mg PO BID 90 days trazodone 50 mg PO BEDTIME PRN 30 days Tobacco use date assessed: 01/20/24 Dental Screening Dental Screen Date: 01/20/24 HPI f/u walk in - BP HPI Details Pt was seen in the walk-in on 01/25 with headache, neck pain, and elevated blood pressure. Pt reports that her blood pressure became elevated which is abnormal for her. Pt's lisinopril was increased to 40mg. Pt does take her blood pressure at home and it remains elevated. BP is elevated in the office today. She is currently taking lisinopril 40mg and propranolol 20mg. Will increase propranolol to 20mg bid and add amlodipine 2.5mg. Will also refer to nephrology. She does report headaches when her BP is high. Pt also reports palpitations and shortness of breath with exertion. She also has some chest discomfort when she is stressed. She reports having a previous stress test. Will order echo and holter. Pt is following up with pulmonology early next month. She knows to dial 911 with any worsening symptoms or seek treatment at a hospital [facility] Medical History Chronic restrictive lung disease Dyspnea High blood pressure Surgical History H/O gastric bypass Family History Maternal Uncle Substance use disorder Maternal Aunt Substance use disorder Paternal Aunt Substance use disorder Paternal Uncle Substance use disorder Social History Housing: House Patient Tobacco Use Status: Former Tobacco user e-Cigarette/Vaping Use: Never Used Second Hand Smoke Exposure: No service: No Current occupational status: employed Current occupation: [employer], [employer] Current occupational exposures/hazards: No Cognitive needs: No Hearing needs: No Vision needs: No Questionnaire PHQ-9 Over the last 2 weeks, how often have you been bothered by any of the following problems? 1. Little interest or pleasure in doing things: not at all 2. Feeling down, depressed, or hopeless: not at all 3. Trouble falling or staying asleep, or sleeping too much: several days 4. Feeling tired or having little energy: not at all 5. Poor appetite or overeating: not at all 6. Feeling bad about yourself - or that you are a failure or have let yourself or your family down: not at all 7. Trouble concentrating on things, such as reading the newspaper or watching television: several days 8. Moving or speaking so slowly that other people could have noticed. Or the opposite - being so fidgety or restless that you have been moving around a lot more than usual: not at all 9. Thoughts that you would be better off or of hurting yourself in some way: not at all Total score: 2 Source: Developed by Drs. Jesse Singleton, Muna Cain, Wood Vega and colleagues, with an educational meg from [employer]. Thrive Questionnaire Date Thrive assessed: 12/22/23 I am a: Patient What is your living situation today?: I have a steady place to live Within the past 12 months, did the food you bought not last and you didn't have the money to get more?: Never true Within the past 12 months, did you worry whether your food would run out before you got money to buy more?: Never true Do you have trouble paying for medicines?: No Do you have trouble getting transportation to medical appointments?: No Do you have trouble paying your heating and electricity bill?: No Do you have trouble taking care of your child, family member or friend?: No Do you have trouble with day-to-day activities such as bathing, preparing meals, shopping, managing finances, etc.?: No Are you currently unemployed and looking for a job?: No Are you interested in more education?: No Please select the resources that you would like help with: None Currently or been in a relationship where the following occur: No concerns reported THRIVE Score: 0 AUDIT C Alcohol Use Questionnaire (AUDIT-C) 1. How often do you have a drink containing alcohol?: Monthly or less 2. How many drinks containing alcohol do you have on a typical day when you are drinking?: 3 or 4 3. How often do you have six or more drinks on one occasion?: Never Total Score: 2 MARY ELLEN-7 AMB Questionnaire MARY ELLEN-7 Date MARY ELLEN - 7 assessed: 01/20/24 Feeling nervous, anxious, or on edge: 0 = Not at all Not being able to stop or control worryin = Not at all Worrying too much about different things: 0 = Not at all Trouble relaxin = Not at all Being so restless that it is hard to sit still: 0 = Not at all Becoming easily annoyed or irritable: 0 = Not at all Feeling afraid as if something awful might happen: 0 = Not at all Total MARY ELLEN-7 score (0-4 normal; 5-9 mild; 10-14 moderate; 15-21 severe): 0 Source: Developed by Drs. Jesse Singleton, Muna Cain, Wood Vega and colleagues, with an educational meg from [employer]. MARY ELLEN-7 Assessment Billing MARY ELLEN-7 Assessment Tool: MARY ELLEN-7 Assessment [id number] Review of Systems Const Reports as per HPI Physical exam (Primary Care) Vital Signs: Last Vital Signs Pulse 74 02/03/24 14:21 BP 140/100 H 02/03/24 15:04 Pulse Ox 98 02/03/24 14:21 Oxygen Delivery Method Room Air 02/03/24 14:21 BMI result Body Mass Index 26.3 Tobacco/Smoking Status: Tobacco use Status Tobacco use date assessed 01/20/24 02/03/24 14:18 Patient Tobacco Use Status Former Tobacco user 02/03/24 14:18 e-Cigarette/Vaping Use Never Used 02/03/24 14:18 PHQ-9: PHQ-9 Score PHQ-9: Total score 2 02/03/24 15:04 Thrive Assessment: Date of Thrive Assessment Date Thrive assessed 12/22/23 02/03/24 14:18 Currently or been in a relationship where the following occur: No concerns reported Const General: cooperative Orientation/consciousness: patient oriented x3 Resp Effort & Inspection: normal respiratory effort Auscultation: clear to auscultation bilaterally Cardio Rate: regular rate Rhythm: regular rhythm Heart sounds: S1 normal heart sound present and S2 normal heart sound present Neuro General: patient oriented x3 Extrem Right lower extremity: no edema Left lower extremity: no edema Psych Appearance: grossly normal Mental Status: mental status grossly normal Speech and movement: Normal speech and movement present Affect: normal affect Attitude: cooperative Thought process: Normal thought process present Thought content: Normal thought content present Insight: Good insight present (Psych) Judgement: Good judgement present (Psych) Assessment and Plan Assessment & Plan (1) Palpitations: Code(s): R00.2 - Palpitations Plan: holter/echo (2) Palpitations: Code(s): R00.2 - Palpitations (3) Dyspnea: Code(s): R06.00 - Dyspnea, unspecified Qualifiers: Dyspnea type: dyspnea on exertion Qualified Code(s): R06.09 - Other forms of dyspnea Plan: follow up with pulmonary, lungs are clear (today) (4) Tachycardia: Code(s): R00.0 - Tachycardia, unspecified (5) Pulmonary hypertension: Code(s): I27.20 - Pulmonary hypertension, unspecified Plan: follow up with pulmonary (6) Uncontrolled hypertension: Code(s): I10 - Essential (primary) hypertension Plan: BB changed to BID, added amlodipine, pt will contact me at the end of this week via portal with BPs Plan The patient agreed to the use of a medical affairs specialist for this encounter. Scribed for ASHLEI Martinez by Minerva Hung, medical affairs specialist, on 02/03/2024 at 14:40 EST. Orders: Orders Complete Blood Count Auto Diff Today I10 - Essential (primary) hypertension, R00.2 - Palpitations Comprehensive Met. Panel Today I10 - Essential (primary) hypertension, R00.2 - Palpitations Ferritin Today I10 - Essential (primary) hypertension, R00.2 - Palpitations Vitamin B12 and Folate Today I10 - Essential (primary) hypertension, R00.2 - Palpitations ECG 3 day holter monitor Today R00.2 - Palpitations CA echo transthoracic complete Today I27.20 - Pulmonary hypertension, unspecified, R00.0 - Tachycardia, unspecified, R00.2 - Palpitations, R06.09 - Other forms of dyspnea IRON PROFILE Today I10 - Essential (primary) hypertension, R00.2 - Palpitations Referrals Nephrology Referral I10 - Essential (primary) hypertension Medications: New amlodipine 2.5 mg PO DAILY 90 tabs 0RF Changed From propranolol 10 mg PO BID 90 days 180 tabs 1RF To propranolol 20 mg PO BID 180 tabs 1RF 90 days Discontinued lisinopril Discontinued Reason: Duplicate 30 mg PO DAILY 90 tabs 1RF Coding Level of Care Code Est Pt Level 3 (21130) Diagnoses Palpitations R00.2 Dyspnea on exertion R06.09 Dyspnea type: dyspnea on exertion Tachycardia R00.0 Pulmonary hypertension I27.20 Uncontrolled hypertension I10 Additional Codes MARY ELLEN-7 Assessment Billing - MARY ELLEN-7 Assessment Tool: MARY ELLEN-7 Assessment [id number] ([id number])
[2024-02-03 14:21] VITALS: BP 150/102; PULSE 74; O2SAT 98; BMI 26.3
[2024-02-03 15:04] VITALS: BP 140/100; BP 140/112
== END 2024-02-03 15:42 | disposition home or self-care (01) ==
PROVIDERS: PCP Nurse Practitioner Family; Visit Provider Nurse Practitioner Family
DX: R00.2 Palpitations (principal); R06.09 Other forms of dyspnea; R00.0 Tachycardia, unspecified; I27.20 Pulmonary hypertension, unspecified; I10 Essential (primary) hypertension

== ENCOUNTER → 2024-02-03 14:12 | Outpatient (BNVA) | payer OTHER, SELFPAY | PROVIDERS: PCP Nurse Practitioner Family; Visit Provider Nurse Practitioner Family | DX: R00.2 Palpitations (principal); R06.09 Other forms of dyspnea; R00.0 Tachycardia, unspecified; I27.20 Pulmonary hypertension, unspecified; I10 Essential (primary) hypertension | CPT/HCPCS: 96127; 99212 ==

== ENCOUNTER 2024-02-13 11:25 | Outpatient (AMB) | payer OTHER, SELFPAY ==
[2024-02-13 11:27] VITALS: BP 100/72; PULSE 84; O2SAT 94; BMI 26.2
--- NOTE | 2024-02-13 11:27 | HO.NEPHOV_ITS ---
Vital Signs 02/13/24 11:27 Height 5 ft 2 in Weight 143 lb BMI 26.2 BP 100/72 Blood Pressure Location Lt brachial Position Sitting Pulse 84 Pulse Source Pulse Oximeter Pulse Oximetry (%) 94 Oxygen Delivery Method Room Air Intake Visit Reasons: Essential (primary) hypertension/ Conf Spectrographic Analyst Required: No Accompanied by: Self / Same As Patient Allergies sumatriptan [Imitrex] Allergy (Unknown, Verified 02/13/24 11:28) tachycardia tramadol [Ultram] Allergy (Unknown, Verified 02/13/24 11:28) nausea HPI Comments Details: Pt is a 43 y/o female with a PMH of uncontrolled HTN, restrictive lung disease, ROXANA (mild, does not need mask), pulmonary HTN who presents today for evaluation of poorly controlled blood pressure. she is currently taking lisinopril 40mg daily, hctz 12.5mg daily, amlodipine 2.5mg daily and propranolol 20mg BID for blood pressure control. blood pressure controlled for 30mg lisinopril and 10mg propranolol daily for 13 years. then January 20 had headache when she woke up, BP was elevated, had not been taking medication, started taking and BP did not improve. Since that time, PCP then has been increasing doses/added meds weekly based on continued elevation in BP. this past Friday the readings were still high, so then he added hctz 12.5mg 3 days ago. Reports always gets a left-sided headache with left-sided neck pain when her blood pressure increases. Elevated blood pressures started in her 20s. 2 brothers, both have high blood pressure as younger adults mother has high blood pressure, stroke 5 years ago (from HTN), widespread arthritis. father passed from bladder cancer, but had HTN as well recently lost 60-70lbs, gradually with healthy diet since July 2022. Gastric bypass long before 8 years ago did not help her lose weight. since 2019 lots of breathing issues- reports since covid-19 infection, seeing pulmonology for restrictive lung disease. reports since that time has had tachycardia- wakes up with pulse with waking in 120s. reports her PCP is doing a holter monitor. 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 Denies dizziness Card Denies no additional complaints, Denies chest pain, Denies chest pain with activity, Denies pedal edema, Reports palpitations and Reports dyspnea on exerti on (reports ongoing since 2020 covid-19 infection) Resp Reports no additional complaints and Reports dyspnea on exertion (reports ongoing since 2019 covid-19 infection) GI Denies abdominal pain and Denies diarrhea Denies hematuria, Denies difficulty voiding, Denies dysuria, Denies pelvic pain, Denies flank pain, Denies urinary incontinence and Denies urinary urgency Musc Reports arthralgias (isolated left hip pain, reports ongoing since she has been more active) and Denies tingling Skin/Breast Denies rash Neuro Denies dizziness, Denies focal weakness, Denies tingling, Denies tremor(s) and Denies weakness Endo Reports palpitations Physical Exam Vital Signs: Last Vital Signs Pulse 84 02/13/24 11:27 BP 100/72 02/13/24 11:27 Pulse Ox 94 02/13/24 11:27 Oxygen Delivery Method Room Air 02/13/24 11:27 BMI result Body Mass Index 26.2 Const General: comfortable and no acute distress Orientation/consciousness: oriented to person, oriented to place and oriented to time Neck Neck: Yes no JVD Resp Effort & Inspection: able to speak in complete sentences Auscultation: clear to auscultation bilaterally Cardio Jugular venous distension: no JVD Rate: regular rate Rhythm: regular rhythm Heart sounds: S1 normal heart sound present and S2 normal heart sound present GI Palpation (GI): Soft to palpation Rectal Exam - Female: No tenderness General: Yes no CVA tenderness Back/Spine/Pelvis Back: no CVA tenderness Skin Rashes: no rashes Neuro General: oriented to person, oriented to place and oriented to time Extrem General: Yes normal to inspection, No edema and No pedal edema Results Reviewed Nephrology Results: Hgb 13.8 g/dl (12.0-16.0) 08/05/23 WBC 6.2 X10*3/uL (4.8-10.8) 08/05/23 Plt Count 300 X10*3/uL (160-400) 08/05/23 Sodium 142 mmol/L (135-145) 08/05/23 Potassium 3.9 mmol/L (3.3-5.1) 08/05/23 Chloride 108 mmol/L (96-108) 08/05/23 Carbon Dioxide 29 mmol/L (22-29) 08/05/23 BUN 16 mg/dL (9-16) 08/05/23 Creatinine 0.75 mg/dL (0.5-1.4) 08/05/23 Calcium 9.1 mg/dL (8.4-10.2) 08/05/23 Assessment & Plan Assessment & Plan (1) Uncontrolled hypertension: Code(s): I10 - Essential (primary) hypertension Category: Medical (2) Tachycardia: Code(s): R00.0 - Tachycardia, unspecified Category: Medical Plan 43 year old with worsening hypertension despite significant (intentional) weight loss over the last year. given family history and young age of onset of HTN, will get renal ultrasound to rule out renal artery stenosis, FMD. pt also with unexplained tachycardia, will check catecholamines for possible adrenal issue. patient's blood pressure is low today. Given she has some continued elevated blood pressure readings at home today, will get 24 hour ambulatroy blood pressure monitor. She is asymptomatic; advised if her blood pressure drops too low, or if she develops symptoms of low blood pressure including dizziness/lightheadedness, she should hold her lisinopril. patient will return in 1-2 weeks Orders: Orders Basic Metabolic Panel 02/13/24 I10 - Essential (primary) hypertension, N18.30 - Chronic kidney disease, stage 3 unspecified, R00.0 - Tachycardia, unspecified UA w Microscopic 02/13/24 I10 - Essential (primary) hypertension, R00.0 - Tachy cardia, unspecified AMB 24 HR B/P Monitor PLACEMENT 02/13/24 I10 - Essential (primary) hypertension US renal BI 02/13/24 I10 - Essential (primary) hypertension Catecholamines, Frac., Plasma 02/13/24 I10 - Essential (primary) hypertension, R00.0 - Tachycardia, unspecified Protein Creatinine Ratio, Ur 02/13/24 I10 - Essential (primary) hypertension, R00.0 - Tachycardia, unspecified Coding Level of Care Code New Pt Level 4 (94028) Diagnoses Uncontrolled hypertension I10 Tachycardia R00.0
== END 2024-02-13 12:01 | disposition home or self-care (01) ==
PROVIDERS: PCP Nurse Practitioner Family; Referring Provider Nurse Practitioner Family; Visit Provider Internal Medicine Hypertension Specialist
DX: I10 Essential (primary) hypertension (principal); R00.0 Tachycardia, unspecified
CPT/HCPCS: 99204

== ENCOUNTER → 2024-02-13 11:25 | Outpatient (BNVA) | payer OTHER, SELFPAY | PROVIDERS: PCP Nurse Practitioner Family; Referring Provider Nurse Practitioner Family; Visit Provider Internal Medicine Hypertension Specialist | DX: I12.9 Hypertensive chronic kidney disease with stage 1 through stage 4 chronic kidney disease, or unspecified chronic kidney disease (principal); N18.30 Chronic kidney disease, stage 3 unspecified; G47.33 Obstructive sleep apnea (adult) (pediatric); R00.0 Tachycardia, unspecified | CPT/HCPCS: 99202 ==

== ENCOUNTER 2024-02-16 15:47 | Outpatient (REF) | payer OTHER, SELFPAY ==
--- NOTE | ~2024-02-16 | MM_ITS ---
EXAMINATION: MM SCREENING DIGITAL BREAST TOMOSYNTHESIS, BILATERAL CLINICAL INFORMATION: Screening. Asymptomatic. COMPARISON: Mammography: Comparison is made with available priors TECHNIQUE: Digital breast mammography with tomosynthesis is performed in both the craniocaudal and mediolateral oblique views along with computer-aided detection (CAD). FINDINGS: There are scattered areas of fibroglandular density (ACR BI-RADS breast composition Category b). There are no significant masses, abnormal calcifications, or other abnormalities. MM/MM tomosynthesis screening BI IMPRESSION: No mammographic evidence of malignancy. ASSESSMENT: BI-RADS BI-RADS 1 - Negative RECOMMENDATION: Routine annual mammography screening. 1 year F/U This examination should not preclude the clinical evaluation of a suspicious palpable abnormality. This patient's information was entered into a reminder system with a target due date for their next mammogram. Electronically signed by: Elissa Parmar DO 02/26/2024 06:36 PM EDT
== END 2024-02-16 15:48 | disposition home or self-care (01) ==
LOC: HO.MAMMO 15:47
PROVIDERS: PCP Nurse Practitioner Family; Visit Provider Nurse Practitioner Family
DX: Z12.31 Encounter for screening mammogram for malignant neoplasm of breast (principal)
CPT/HCPCS: 77063; 77067

== ENCOUNTER → 2024-02-16 15:49 | Outpatient (BNV) | payer OTHER, SELFPAY | PROVIDERS: PCP Nurse Practitioner Family; Visit Provider Internal Medicine | DX: Z12.31 Encounter for screening mammogram for malignant neoplasm of breast (principal) | CPT/HCPCS: 77063; 77067 ==

== ENCOUNTER 2024-02-17 08:03 | Outpatient (AMB) | payer OTHER, SELFPAY ==
--- NOTE | 2024-02-17 07:22 | A.OFFPC_ITS ---
Intake Visit Reasons: 2 week tv Allergies sumatriptan [Imitrex] Allergy (Unknown, Verified 02/13/24 11:28) tachycardia tramadol [Ultram] Allergy (Unknown, Verified 02/13/24 11:28) nausea Medication List - Last Reconciled 02/17/24 by ASHLIE Flores albuterol sulfate 90 mcg/actuation 2 puffs inhalation Q6H PRN amlodipine 2.5 mg PO DAILY fluticasone propionate 110 mcg/actuation (Flovent HFA) 2 puffs inhalation DAILY 30 days hydrochlorothiazide 12.5 mg PO DAILY 30 days levalbuterol tartrate 45 mcg/actuation (Xopenex HFA) 2 puffs inhalation Q6H PRN 30 days lisinopril 20 mg PO DAILY pantoprazole 40 mg PO DAILY propranolol 20 mg PO BID 90 days trazodone 50 mg PO BEDTIME PRN 30 days Tobacco use date assessed: 01/20/24 Dental Screening Dental Screen Date: 01/20/24 HPI 2 week tv HPI Details HTN: Blood pressure is managed with amlodipine 2.5mg, hydrochlorothiazide 12.5mg, lisinopril 40mg, and propranolol 20mg bid. Pt reports that her blood pressure has been intermittently low, but does not go under 110 systolically. Pt was told by nephrology to hold her lisinopril if she is under 110 systolically (according to pt). Will decrease lisinopril from 40mg to 20mg. Pt is following up with nephrology and cardiology. She has an upcoming holter monitor+ echo .Denies chest pain, shortness of breath, headache, dizziness, and blurred vision. [facility] Medical History Chronic restrictive lung disease Dyspnea High blood pressure Surgical History H/O gastric bypass Family History Maternal Uncle Substance use disorder Maternal Aunt Substance use disorder Paternal Aunt Substance use disorder Paternal Uncle Substance use disorder Mother Hypertension Brother Hypertension Father Hypertension Social History Housing: House Patient Tobacco Use Status: Former Tobacco user e-Cigarette/Vaping Use: Never Used Second Hand Smoke Exposure: No service: No Current occupational status: employed Current occupation: [employer], [employer] Current occupational exposures/hazards: No Cognitive needs: No Hearing needs: No Vision needs: No Questionnaire Thrive Questionnaire Date Thrive assessed: 12/22/23 MARY ELLEN-7 AMB Questionnaire MARY ELLEN-7 Date MARY ELLEN - 7 assessed: 01/20/24 Source: Developed by Drs. Jesse Singleton, Muna Cain, Wood Vega and colleagues, with an educational meg from [employer]. Review of Systems Const Reports as per HPI Physical exam (Primary Care) Tobacco/Smoking Status: Tobacco use Status Tobacco use date assessed 01/20/24 02/17/24 07:25 Patient Tobacco Use Status Former Tobacco user 02/17/24 07:25 e-Cigarette/Vaping Use Never Used 02/17/24 07:25 Thrive Assessment: Date of Thrive Assessment Date Thrive assessed 12/22/23 02/17/24 07:25 Const General: cooperative Orientation/consciousness: patient oriented x3 Neuro General: patient oriented x3 Psych Appearance: grossly normal Mental Status: mental status grossly normal Speech and movement: Clear speech present Affect: normal affect Attitude: cooperative Thought process: Normal thought process present Thought content: Normal thought content present Insight: Good insight present (Psych) Judgement: Good judgement present (Psych) Telehealth Telehealth Telehealth Platform: [facility] Location of provider rendering services: practice address Location of patient: address on file Patient Identification confirmed using: Name, : Yes Telehealth method: video Patient verbally consented to treatment: Yes Patient verbally consented to billing insurance company: Yes Patient informed of any privacy concerns related to visit: Yes Minutes spent on Phone/Video with Pt.: 10 Assessment and Plan Assessment & Plan (1) Uncontrolled hypertension: Code(s): I10 - Essential (primary) hypertension Plan: echo and holter scheduled. Lisinopril dropped to 20mg from 40mg. Told to hold med if below 110 systolically. (2) Tachycardia: Code(s): R00.0 - Tachycardia, unspecified Plan The patient agreed to the use of a certified medical assistant for this encounter. Scribed for ASHLIE Martinez by Minerva Hung, certified medical assistant, on 02/17/2024 at 07:20 EST. Medications: Changed From lisinopril 40 mg PO DAILY 90 tabs 0RF To lisinopril 20 mg PO DAILY 30 tabs 2RF Coding Level of Care Code Tele Est Pt Level 3 (15168) Diagnoses Uncontrolled hypertension I10 Tachycardia R00.0
== END 2024-02-17 08:03 | disposition home or self-care (01) ==
LOC: HO.HMCC 08:03
PROVIDERS: PCP Nurse Practitioner Family; Visit Provider Nurse Practitioner Family
DX: I10 Essential (primary) hypertension (principal); R00.0 Tachycardia, unspecified

== ENCOUNTER → 2024-02-17 08:03 | Outpatient (BNVA) | payer OTHER, SELFPAY | PROVIDERS: PCP Nurse Practitioner Family; Visit Provider Nurse Practitioner Family | DX: I10 Essential (primary) hypertension (principal); R00.0 Tachycardia, unspecified ==

== ENCOUNTER 2024-02-25 07:23 | Outpatient (REF) | payer OTHER, SELFPAY ==
[2024-02-25 09:56] LABS: MANUAL DIFF FLAG NO
[2024-02-25 10:09] LABS: Basophils Percent Auto 0.9 % (0-2); Eosinophils Absolute Auto 0.1 X10*3/uL (0.0-0.4); Hematocrit 34.2 % (37.0-47.0); Hemoglobin 11.2 g/dl (12.0-16.0); Imm Gran Abs Auto 0.02 X10*3/uL (0.00-0.03); Imm Gran Pct Auto 0.5 % (0.0-0.4); Lymphocytes Absolute Auto 1.7 X10*3/uL (1.2-4.9); Mean Corpuscular HGB Conc 32.7 g/dl (31.0-35.0); Mean Corpuscular Volume 88.6 fL (80.0-98.0); Mean Platelet Volume 10.2 fL (9.4-12.3); Monocytes Absolute Auto 0.4 X10*3/uL (0.1-1.2); Neutrophils Absolute Auto 2.2 x10*3/uL (2.0-8.3); Neutrophils Percent Auto 49.6 % (45-73); Platelet Count 306 X10*3/uL (160-400); Red Blood Count 3.86 X10*6/uL (4.20-5.50); White Blood Count 4.4 X10*3/uL (4.8-10.8)
[2024-02-25 10:22] LABS: Appearance Urine Clear; Color Urine Yellow; Glucose Urine UA Negative (Negative); Leukocyte Esterase Urine Trace (Negative); Nitrite Urine Negative (Negative); PH 6.5 (5.0-9.0); Specific Gravity - Urine 1.025 (1.005-1.025); UMIC TRIGGER UACC YES; Urine Blood Negative (Negative); Urine Ketones Trace mg/dL (Negative); Urine Protein Negative (Neg-Trace)
[2024-02-25 10:27] LABS: Alanine Aminotransferase 12 U/L (0-31); Albumin Level 3.9 g/dL (3.5-5.0); Alkaline Phosphatase 46 U/L (39-117); Anion Gap 9 (12-20); Aspartate Amino Transferase 14 U/L (5-31); Bilirubin Total 0.4 mg/dL (0.0-1.0); Blood Urea Nitrogen 17 mg/dL (9-16); Calcium 9.2 mg/dL (8.4-10.2); Carbon Dioxide 34 mmol/L (22-29); Chloride 103 mmol/L (96-108); Cholesterol 140 mg/dL (<200); Estimated Glomerular Filt Rate > 60; Glucose Fasting 87 mg/dL (60-99); HDL Cholesterol 45 mg/dL (>40); Iron 109 mcg/dL (30-160); LDL Cholesterol Calculated 81 mg/dL (<100); Percent Iron Saturation 52 % (15-50); Potassium 3.8 mmol/L (3.3-5.1); Sodium 142 mmol/L (135-145); Total Iron Binding Capacity 209 mcg/dL (228-428); Total Protein 6.6 g/dL (6.5-8.0); Triglycerides 72 mg/dL (<150); Unsaturated Iron Binding 100 ug/dL
[2024-02-25 10:31] LABS: Bacteria Urine 2+ (None Seen); Hyaline Casts Urine 0-2 /LPF (0-2); RBC Urine 0-2 /HPF (0-2); UACC Culture Trigger YES
[2024-02-25 10:38] LABS: Creatinine Urine 205.01 mg/dL; Protein/Creatinine Ratio, Ur 0.07 (<0.2); Total Protein Urine Random 14 mg/dL (<12)
[2024-02-25 10:46] LABS: Ferritin 207 ng/mL (10-250); TSH reflex Free T4 2.11 uIU/mL (0.32-4.0); Vitamin D 25-OH Total 28.7 ng/mL (>30)
[2024-02-25 10:48] LABS: Folate 6.7 ng/mL (> or = 4.0); Vitamin B12 654 pg/mL (200-900)
[2024-02-25 15:24] LABS: MANUAL DIFF FLAG NO
[2024-02-25 15:47] LABS: Basophils Percent Auto 0.6 % (0-2); Eosinophils Absolute Auto 0.1 X10*3/uL (0.0-0.4); Eosinophils Percent Auto 2.3 % (0-4); Hematocrit 34.2 % (37.0-47.0); Hemoglobin 11.4 g/dl (12.0-16.0); Imm Gran Abs Auto 0.01 X10*3/uL (0.00-0.03); Imm Gran Pct Auto 0.2 % (0.0-0.4); Lymphocytes Absolute Auto 1.9 X10*3/uL (1.2-4.9); Lymphocytes Percent Auto 30.8 % (20-40); Mean Corpuscular HGB Conc 33.3 g/dl (31.0-35.0); Mean Corpuscular Hemoglobin 29.5 pg (27.0-33.0); Mean Corpuscular Volume 88.6 fL (80.0-98.0); Mean Platelet Volume 9.8 fL (9.4-12.3); Monocytes Absolute Auto 0.5 X10*3/uL (0.1-1.2); Monocytes Percent Auto 8.1 % (2-11); Neutrophils Absolute Auto 3.6 x10*3/uL (2.0-8.3); Platelet Count 357 X10*3/uL (160-400); Red Blood Count 3.86 X10*6/uL (4.20-5.50); Red Cell Distribution Width 12.1 % (11.0-16.0); White Blood Count 6.2 X10*3/uL (4.8-10.8)
[2024-02-25 15:48] LABS: Basophils Absolute Auto 0.1 X10*3/uL (0.0-0.2); Basophils Percent Auto 0.8 % (0-2); Eosinophils Absolute Auto 0.1 X10*3/uL (0.0-0.4); Eosinophils Percent Auto 2.2 % (0-4); Hematocrit 34.3 % (37.0-47.0); Hemoglobin 11.4 g/dl (12.0-16.0); Imm Gran Abs Auto 0.02 X10*3/uL (0.00-0.03); Imm Gran Pct Auto 0.3 % (0.0-0.4); Lymphocytes Absolute Auto 1.9 X10*3/uL (1.2-4.9); Lymphocytes Percent Auto 31.1 % (20-40); Mean Corpuscular HGB Conc 33.2 g/dl (31.0-35.0); Mean Corpuscular Hemoglobin 29.5 pg (27.0-33.0); Mean Corpuscular Volume 88.9 fL (80.0-98.0); Monocytes Absolute Auto 0.5 X10*3/uL (0.1-1.2); Monocytes Percent Auto 8.6 % (2-11); Neutrophils Absolute Auto 3.4 x10*3/uL (2.0-8.3); Platelet Count 353 X10*3/uL (160-400); Red Blood Count 3.86 X10*6/uL (4.20-5.50)
[2024-02-25 15:57] LABS: Appearance Urine Clear; Color Urine Yellow; Glucose Urine UA Negative (Negative); Leukocyte Esterase Urine Negative (Negative); Nitrite Urine Negative (Negative); Urine Blood Negative (Negative); Urine Ketones Negative (Negative); Urine Protein Negative (Neg-Trace)
[2024-02-25 16:03] LABS: Alanine Aminotransferase 12 U/L (0-31); Albumin Level 4.1 g/dL (3.5-5.0); Alkaline Phosphatase 54 U/L (39-117); Anion Gap 9 (12-20); Aspartate Amino Transferase 14 U/L (5-31); Bilirubin Total 0.4 mg/dL (0.0-1.0); Blood Urea Nitrogen 17 mg/dL (9-16); Calcium 9.2 mg/dL (8.4-10.2); Carbon Dioxide 32 mmol/L (22-29); Chloride 104 mmol/L (96-108); Estimated Glomerular Filt Rate > 60; Glucose Random 85 mg/dL (60-115); Potassium 3.9 mmol/L (3.3-5.1); Sodium 141 mmol/L (135-145); Total Protein 7.2 g/dL (6.5-8.0)
[2024-02-25 16:13] LABS: Alanine Aminotransferase 12 U/L (0-31); Albumin Level 4.1 g/dL (3.5-5.0); Alkaline Phosphatase 55 U/L (39-117); Anion Gap 8 (12-20); Aspartate Amino Transferase 13 U/L (5-31); Bilirubin Total 0.4 mg/dL (0.0-1.0); Blood Urea Nitrogen 17 mg/dL (9-16); Calcium 9.5 mg/dL (8.4-10.2); Carbon Dioxide 32 mmol/L (22-29); Chloride 104 mmol/L (96-108); Estimated Glomerular Filt Rate > 60; Glucose Random 85 mg/dL (60-115); Iron 91 mcg/dL (30-160); Percent Iron Saturation 42 % (15-50); Sodium 140 mmol/L (135-145); Total Iron Binding Capacity 216 mcg/dL (228-428); Total Protein 7.2 g/dL (6.5-8.0); Unsaturated Iron Binding 125 ug/dL
[2024-02-25 16:27] LABS: Ferritin 209 ng/mL (10-250)
== END 2024-02-25 07:24 | disposition home or self-care (01) ==
LOC: HO.HMGCLDS 07:23
PROVIDERS: Internal Medicine Medical Oncology; PCP Nurse Practitioner Family; Referring Provider Nurse Practitioner Family; Visit Provider Nurse Practitioner Family
DX: Z00.00 Encounter for general adult medical examination without abnormal findings (principal); I10 Essential (primary) hypertension; R00.2 Palpitations; E55.9 Vitamin D deficiency, unspecified; R00.0 Tachycardia, unspecified; D64.9 Anemia, unspecified
CPT/HCPCS: 36415; 80053; 80061; 81001; 81003; 82306; 82570; 82607; 82728; 82746; 83540; 84156; 84443; 85025; 87086

== ENCOUNTER 2024-02-26 07:09 | Outpatient (REF) | payer OTHER, SELFPAY ==
[2024-02-26 09:32] LABS: Appearance Urine Cloudy; Color Urine Dark Yellow; Glucose Urine UA Negative (Negative); Leukocyte Esterase Urine Small (1+) (Negative); Nitrite Urine Negative (Negative); PH 5.5 (5.0-9.0); Specific Gravity - Urine >= 1.030 (1.005-1.025); UMIC TRIGGER UA YES; Urine Blood Negative (Negative); Urine Ketones Trace mg/dL (Negative); Urine Protein Trace mg/dL (Neg-Trace)
[2024-02-26 09:41] LABS: Anion Gap 9 (12-20); Blood Urea Nitrogen 16 mg/dL (9-16); Calcium 9.6 mg/dL (8.4-10.2); Carbon Dioxide 33 mmol/L (22-29); Chloride 103 mmol/L (96-108); Estimated Glomerular Filt Rate > 60; Glucose Random 86 mg/dL (60-115); Potassium 3.7 mmol/L (3.3-5.1); Sodium 141 mmol/L (135-145)
[2024-02-26 10:27] LABS: Bacteria Urine 4+ (None Seen); Hyaline Casts Urine 0-2 /LPF (0-2); RBC Urine 0-2 /HPF (0-2); Squamous Epithelial Cell Urine >20 /HPF (0-2)
[2024-03-04 18:24] LABS: Catecholamine Frac, Total <594 pg/mL
== END 2024-02-26 07:10 | disposition home or self-care (01) ==
LOC: HO.LAB 07:09
PROVIDERS: PCP Nurse Practitioner Family; Visit Provider Nurse Practitioner Family
DX: I12.9 Hypertensive chronic kidney disease with stage 1 through stage 4 chronic kidney disease, or unspecified chronic kidney disease (principal); N18.30 Chronic kidney disease, stage 3 unspecified; R00.0 Tachycardia, unspecified
CPT/HCPCS: 36415; 80048; 81001; 82384

== ENCOUNTER 2024-02-27 14:01 | Outpatient (AMB) | payer OTHER, SELFPAY ==
[2024-02-27 14:05] VITALS: BP 100/64; PULSE 98; O2SAT 100; BMI 25.4
--- NOTE | 2024-02-27 14:05 | HO.NEPHOV_ITS ---
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 Accompanied by: Self / Same As Patient Allergies sumatriptan [Imitrex] Allergy (Unknown, Verified 03/05/24 10:25) tachycardia tramadol [Ultram] Allergy (Unknown, Verified 03/05/24 10:25) nausea Medication List - Last Reconciled 02/27/24 by Dandy Covarrubias MD albuterol sulfate 90 mcg/actuation 2 puffs inhalation Q6H PRN amlodipine 2.5 mg PO DAILY fluticasone propionate 110 mcg/actuation (Flovent HFA) 2 puffs inhalation DAILY 30 days hydrochlorothiazide 12.5 mg PO DAILY 30 days levalbuterol tartrate 45 mcg/actuation (Xopenex HFA) 2 puffs inhalation Q6H PRN 30 days lisinopril 20 mg PO DAILY pantoprazole 40 mg PO DAILY propranolol 20 mg PO BID 90 days trazodone 50 mg PO BEDTIME PRN 30 days HPI Comments Details: Pt is a 43 y/o female with a PMH of uncontrolled HTN, restrictive lung disease, ROXANA (mild, does not need mask), pulmonary HTN who presents today for evaluation of poorly controlled blood pressure. she is currently taking lisinopril 40mg daily, hctz 12.5mg daily, amlodipine 2.5mg daily and propranolol 20mg BID for blood pressure control. blood pressure controlled for 30mg lisinopril and 10mg propranolol daily for 13 years. then January 20 had headache when she woke up, BP was elevated, had not been taking medication, started taking and BP did not improve. Since that time, PCP then has been increasing doses/added meds weekly based on continued elevation in BP. this past Friday the readings were still high, so then he added hctz 12.5mg 3 days ago. Reports always gets a left-sided headache with left-sided neck pain when her blood pressure increases. Elevated blood pressures started in her 20s. 2 brothers, both have high blood pressure as younger adults mother has high blood pressure, stroke 5 years ago (from HTN), widespread arthritis. father passed from bladder cancer, but had HTN as well recently lost 60-70lbs, gradually with healthy diet since July 2022. Gastric bypass long before 8 years ago did not help her lose weight. since 2019 lots of breathing issues- reports since covid-19 infection, seeing pulmonology for restrictive lung disease. reports since that time has had tachycardia- wakes up with pulse with waking in 120s. reports her PCP is doing a holter monitor. 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[employer] rt 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 Current occupational exposures/hazards: No Cognitive needs: No Hearing needs: No Vision needs: No Physical Exam Vital Signs: Last Vital Signs Pulse 98 02/27/24 14:05 BP 100/64 02/27/24 14:05 Pulse Ox 100 02/27/24 14:05 Oxygen Delivery Method Room Air 02/27/24 14:05 BMI result Body Mass Index 25.4 Results Reviewed Nephrology Results: Hgb 11.5 g/dl (12.0-16.0) L 03/05/24 WBC 4.8 X10*3/uL (4.8-10.8) 03/05/24 Plt Count 308 X10*3/uL (160-400) 03/05/24 Sodium 140 mmol/L (135-145) 03/05/24 Potassium 4.0 mmol/L (3.3-5.1) 03/05/24 Chloride 102 mmol/L (96-108) 03/05/24 Carbon Dioxide 31 mmol/L (22-29) H 03/05/24 BUN 19 mg/dL (9-16) H 03/05/24 Creatinine 0.83 mg/dL (0.5-1.4) 03/05/24 Calcium 9.1 mg/dL (8.4-10.2) 03/05/24 Urine Protein Trace mg/dL (Neg-Trace) 02/26/24 Urine Creatinine 205.01 mg/dL 02/25/24 Protein/Creatinin Ratio 0.07 (<0.2) 02/25/24 Renal US 03/05/24 Assessment & Plan Assessment & Plan (1) Uncontrolled hypertension: Code(s): I10 - Essential (primary) hypertension Category: Medical (2) Tachycardia: Code(s): R00.0 - Tachycardia, unspecified Category: Medical Plan 43 year old with worsening hypertension despite significant (intentional) weight loss over the last year. given family history and young age of onset of HTN, will get renal ultrasound to rule out renal artery stenosis, FMD. pt also with unexplained tachycardia, will check catecholamines for possible adrenal issue. patient's blood pressure is low today. Given she has some continued elevated blood pressure readings at home today, will get 24 hour ambulatroy blood pressure monitor. She is asymptomatic; advised if her blood pressure drops too low, or if she develops symptoms of low blood pressure including dizziness/lightheadedness, she should hold her lisinopril. patient will return in 1-2 weeks 02/27/24 DC Amlopine Change Lisinopril to 20 mg Q PM Medications: Discontinued amlodipine Discontinued Reason: Doctor's Order 2.5 mg PO DAILY 90 tabs 0RF Coding Level of Care Code Est Pt Level 4 (11446) Diagnoses Uncontrolled hypertension I10 Tachycardia R00.0
== END 2024-02-27 14:33 | disposition home or self-care (01) ==
PROVIDERS: PCP Nurse Practitioner Family; Visit Provider Internal Medicine Hypertension Specialist
DX: I10 Essential (primary) hypertension (principal); R00.0 Tachycardia, unspecified
CPT/HCPCS: 99214

== ENCOUNTER → 2024-02-27 14:01 | Outpatient (BNVA) | payer OTHER, SELFPAY | PROVIDERS: PCP Nurse Practitioner Family; Visit Provider Internal Medicine Hypertension Specialist | DX: I27.20 Pulmonary hypertension, unspecified (principal); R00.0 Tachycardia, unspecified; Z79.899 Other long term (current) drug therapy | CPT/HCPCS: 99212 ==

== ENCOUNTER 2024-03-02 08:24 | Outpatient (AMB) | payer OTHER, SELFPAY ==
--- NOTE | 2024-03-02 07:06 | A.OFFPC_ITS ---
Intake Visit Reasons: 2 week follow up Allergies sumatriptan [Imitrex] Allergy (Unknown, Verified 03/02/24 07:35) tachycardia tramadol [Ultram] Allergy (Unknown, Verified 03/02/24 07:35) nausea Medication List - Last Reconciled 03/02/24 by ASHLIE Flores albuterol sulfate 90 mcg/actuation 2 puffs inhalation Q6H PRN fluticasone propionate 110 mcg/actuation (Flovent HFA) 2 puffs inhalation DAILY 30 days hydrochlorothiazide 12.5 mg PO DAILY 30 days levalbuterol tartrate 45 mcg/actuation (Xopenex HFA) 2 puffs inhalation Q6H PRN 30 days lisinopril 20 mg PO DAILY pantoprazole 40 mg PO DAILY propranolol 20 mg PO BID 90 days trazodone 50 mg PO BEDTIME PRN 30 days Tobacco use date assessed: 01/20/24 Dental Screening Dental Screen Date: 01/20/24 HPI 2 week follow up HPI Details Pt is following up with nephrology due to hypertension. She reports that her blood pressure has been ranging from 90s-120s/50s-70s at home. She is also following up with hematology due to anemia. Pt has an upcoming holter monitor and echo. Denies chest pain, shortness of breath, [place], blurred vision, and dizziness. 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 Jesse Singleton, Muna Cain, Wood Vega and colleagues, with an educational meg from [employer]. Review of Systems Const Reports as per HPI Physical exam (Primary Care) Tobacco/Smoking Status: Tobacco use Status Tobacco use date assessed 01/20/24 03/02/24 07:08 Patient Tobacco Use Status Former Tobacco user 03/02/24 07:08 e-Cigarette/Vaping Use Never Used 03/02/24 07:08 Thrive Assessment: Date of Thrive Assessment Date Thrive assessed 12/22/23 03/02/24 07:08 Const General: cooperative Orientation/consciousness: patient oriented x3 Neuro General: patient oriented x3 Psych Appearance: grossly normal Mental Status: mental status grossly normal Speech and movement: Clear speech present Affect: normal affect Attitude: cooperative Thought process: Normal thought process present Thought content: Normal thought content present Insight: Good insight present (Psych) Judgement: Good judgement present (Psych) Telehealth Telehealth Telehealth Platform: [facility] Location of provider rendering services: practice address Location of patient: address on file Patient Identification confirmed using: Name, : Yes Telehealth method: video Patient verbally consented to treatment: Yes Patient verbally consented to billing insurance company: Yes Patient informed of any privacy concerns related to visit: Yes Minutes spent on Phone/Video with Pt.: 10 Coding Level of Care Code Tele Est Pt Level 3 (38456) Diagnoses Tachycardia R00.0 Uncontrolled hypertension I10 Palpitations R00.2 Assessment & Plan Assessment & Plan (1) Tachycardia: Code(s): R00.0 - Tachycardia, unspecified Category: Medical Plan: holter, echo ordered, on a BB currently (2) Uncontrolled hypertension: Code(s): I10 - Essential (primary) hypertension Category: Medical Plan: getting more lower BPs now. She is asymptomatic, following up with nephrology (3) Palpitations: Code(s): R00.2 - Palpitations Category: Medical Plan: Upcoming echo and holter, though denies any recent symptoms Plan The patient agreed to the use of a medical artist for this encounter. Scribed for MIGUEL Martinez-BENJI by Minerva Hung, medical artist, on 03/02/2024 at 07:05 EST.
== END 2024-03-02 09:46 | disposition home or self-care (01) ==
LOC: HO.HMCC 08:24
PROVIDERS: PCP Nurse Practitioner Family; Visit Provider Nurse Practitioner Family
DX: R00.0 Tachycardia, unspecified (principal); I10 Essential (primary) hypertension; R00.2 Palpitations

== ENCOUNTER → 2024-03-02 08:24 | Outpatient (BNVA) | payer OTHER, SELFPAY | PROVIDERS: PCP Nurse Practitioner Family; Visit Provider Nurse Practitioner Family | DX: R00.0 Tachycardia, unspecified (principal); I10 Essential (primary) hypertension; R00.2 Palpitations ==

== ENCOUNTER → 2024-03-03 08:03 | Outpatient (REF) | payer OTHER, SELFPAY ==
--- NOTE | 2024-03-03 08:07 | CA_ITS ---
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 The calculated ejection fraction is 53% by biplane method. - No obvious valvular pathology seen on this study. Findings Left Ventricle Normal left ventricular cavity size. The left ventricular systolic function is mildly decreased. The calculated ejection fraction is 53% by biplane method. There is no evidence of regional wall motion abnormalities. Diastolic function is normal for age. There is mild septal asymmetric hypertrophy. LV peak GLS -16.5% (reduced). Right Ventricle Normal right ventricular cavity size and systolic function. Atria Both atria are normal in size. Aortic Valve There is a normal trileaflet aortic valve. There is no aortic valve stenosis. There is no aortic valve regurgitation. Mitral Valve The mitral valve appears normal. There is trace mitral valve regurgitation. There is no mitral valve stenosis. Pulmonic Valve There is trace pulmonic valve regurgitation. Tricuspid Valve Normal tricuspid valve structure. There is mild tricuspid valve regurgitation. There is no evidence of pulmonary hypertension. Great Vessels The asc aorta and aortic arch are normal in size. Venous The inferior vena cava is normal in size and collapses greater than 50% with inspiration. Pericardium/Pleural There is a trivial pericardial effusion. Prior Study Comparison No significant change compared to prior study dated: 01/29/2022. Recommendations, Care & Conclusions No obvious valvular pathology seen on this study. Measurements 2D Linear Measurements IVSd: 1.16 0.6-0.9/0.6-1.0 cm LVIDd: 4.62 3.9-5.3/4.2-5.9 cm LVIDd Index: 2.82 2.4-3.2/2.2-3.1 cm/m2 LVIDs: 2.90 2.0-3.6 cm LVPWd: 0.82 0.7-1.1 cm LA Diam: 3.40 2.7-3.8/3.0-4.0 cm LAIDs Index: 2.07 1.5-2.3 cm/m2 LV Mass: 196.03 67-162/88-224 g LV Mass Index: 119.53 43-95/49-115 g/m2 LVOT Diam: 2.20 3.0+(-)1.3 cm 2D Systolic Function EF 4C: 48.90 >55% EF 2C: 57.60 >55% EF BiP: 52.70 >55% Mitral Valve MV Pk E: 0.67 MV PK A: 0.51 MV Decel Time: 146.00 E/A: 1.30 E'Lateral: 5.77 E'Medial: 6.20 E/E' Med: 10.90 E/E' Lat: 11.70 PHT: 43.00 MVA PHT: 5.12 Decel [place]: 4.60 Aortic Valve AoV Pk Cole: 0.98 AoV Mn Cole: 0.72 AoV VTI: 0.19 AoV Pk Grad: 4.00 Aov Mn Grad: 2.00 GIACOMO Cont.VTI: 2.71 LVOT LVOT Pk Cole: 0.67 LVOT Mn Cole: 0.47 LVOT VTI: 0.13 LVOT Pk Grad: 2.00 LVOT Mn Grad: 1.00 LVOT Diam: 2.20 LVOT Area: 3.80 Diastolic Function MV Pk E: 0.67 MV Pk A: 0.51 E/A: 1.30 E'Medial: 6.20 E/E' Med: 10.90 E' Laterial: 5.77 E/E' Lat: 11.70 Right Ventricle TAPSE (mm): 22.70 TVS' Cole: 10.20 Tricuspid Valve TR Pk Cole: 1.51 TR Pk Grad: 9.00 RA Press: 3.00 RVSP: 12.00 Great Vessels Aorta Sinus of Valsalva: 3.85 2.0-3.[address] [place]: 2.79 1.7-3.4 cm Ao Asc: 3.10 2.1-3.4 cm Ao Arch: 2.20 Updated in Other Vendor System with Status of Final Sridhar Madera MD electronically signed on 03/04/2024 11:29:40 AM with status of Final
== END ==
LOC: HO.CARD 08:03
PROVIDERS: PCP Nurse Practitioner Family; Visit Provider Nurse Practitioner Family
DX: R00.2 Palpitations (principal); I27.20 Pulmonary hypertension, unspecified; R00.0 Tachycardia, unspecified; R06.09 Other forms of dyspnea
CPT/HCPCS: 93242; 93306

== ENCOUNTER → 2024-03-03 08:07 | Outpatient (BNV) | payer OTHER, SELFPAY | PROVIDERS: PCP Nurse Practitioner Family; Visit Provider Internal Medicine | DX: I42.2 Other hypertrophic cardiomyopathy (principal); I36.1 Nonrheumatic tricuspid (valve) insufficiency; R93.1 Abnormal findings on diagnostic imaging of heart and coronary circulation | CPT/HCPCS: 93306; 93356 ==

== ENCOUNTER 2024-03-05 11:01 | Outpatient (REF) | payer OTHER, SELFPAY ==
--- NOTE | ~2024-03-05 | US_ITS ---
EXAMINATION: US RETROPERITONEAL LIMITED (RENAL ONLY) CLINICAL INFORMATION: Essential (primary) hypertension. COMPARISON: CT chest 10/29/2021 TECHNIQUE: Real-time imaging of the kidneys. FINDINGS: RIGHT KIDNEY: 10.8 x 3.6 x 4.8 cm (SAG x AP x TRV). The kidney is normal in size, contour, and echogenicity. Renal cortical thickness is normal. No focal parenchymal lesions or hydronephrosis. There is a tiny 2 mm echogenic focus seen in the right lower pole with twinkle artifact which is likely a tiny nonobstructing calculus. LEFT KIDNEY: 11.9 x 4.1 x 4.3 cm (SAG x AP x TRV). The kidney is normal in size, contour, and echogenicity. Renal cortical thickness is normal. No renal calculi or hydronephrosis. A benign 1.4 cm Bosniak class II renal cyst is noted in the upper pole with some mural calcification which requires no additional imaging or follow up. No solid renal masses are seen. US/US renal BI IMPRESSION: Tiny 2 mm nonobstructing right lower pole calculus. Electronically signed by: Marcel Vargas MD 05/02/2024 10:54 PM [facility]
== END 2024-03-05 11:02 | disposition home or self-care (01) ==
LOC: HO.US 11:01
PROVIDERS: PCP Nurse Practitioner Family; Visit Provider Nurse Practitioner Family
DX: I10 Essential (primary) hypertension (principal)
CPT/HCPCS: 76775

== ENCOUNTER → 2024-03-29 15:37 | Outpatient (REF) | payer OTHER, SELFPAY ==
--- NOTE | 2024-03-29 15:40 | HM_ITS ---
* Total monitoring time 3 days. * Underlying rhythm is sinus with an average rate of 87/Min. * Rare supraventricular ectopy. * Rare ventricular ectopy with a burden of 0.5%. Rare bigeminy/trigeminy. * No significant pauses or high-grade AV blocks. * Patient markers correlate with sinus rhythm. * Symptoms of heart racing, dizziness, lightheaded correlate with sinus rhythm. MTDD
== END ==
LOC: HO.CARD 15:37
PROVIDERS: PCP Nurse Practitioner Family; Visit Provider Nurse Practitioner Family
DX: R00.2 Palpitations (principal)
CPT/HCPCS: 93242

== ENCOUNTER → 2024-03-29 15:40 | Outpatient (BNV) | payer OTHER, SELFPAY | PROVIDERS: PCP Nurse Practitioner Family; Visit Provider Internal Medicine | DX: I47.10 Supraventricular tachycardia, unspecified (principal); I49.3 Ventricular premature depolarization | CPT/HCPCS: 93244 ==

== ENCOUNTER 2024-04-05 15:17 | Outpatient (AMB) | payer OTHER, SELFPAY ==
[2024-04-05 15:21] VITALS: BP 82/55; PULSE 97; O2SAT 98; BMI 26.7
--- NOTE | 2024-04-05 15:21 | HO.NEPHOV ---
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 she is currently taking lisinopril 40mg daily, hctz 12.5mg daily, amlodipine 2.5mg daily and propranolol 20mg BID for blood pressure control. blood pressure controlled for 30mg lisinopril and 10mg propranolol daily for 13 years. then January 20 had headache when she woke up, BP was elevated, had not been taking medication, started taking and BP did not improve. Since that time, PCP then has been increasing doses/added meds weekly based on continued elevation in BP. this past Friday the readings were still high, so then he added hctz 12.5mg 3 days ago. Reports always gets a left-sided headache with left-sided neck pain when her blood pressure increases. Elevated blood pressures started in her 20s. 2 brothers, both have high blood pressure as younger adults mother has high blood pressure, stroke 5 years ago (from HTN), widespread arthritis. father passed from bladder cancer, but had HTN as well recently lost 60-70lbs, gradually with healthy diet since July 2022. Gastric bypass long before 8 years ago did not help her lose weight. since 2019 lots of breathing issues- reports since covid-19 infection, seeing pulmonology for restrictive lung disease. reports since that time has had tachycardia- wakes up with pulse with waking in 120s. reports her PCP is doing a holter monitor. 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[employer]., 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 Current occupational exposures/hazards: No Cognitive needs: No Hearing needs: No Vision needs: No Physical Exam Vital Signs: Last Vital Signs Pulse 97 04/05/24 15:21 BP 82/55 L 04/05/24 15:21 Pulse Ox 98 04/05/24 15:21 Oxygen Delivery Method Room Air 04/05/24 15:21 BMI result Body Mass Index 26.7 Results Reviewed Nephrology Results: Hgb 11.5 g/dl (12.0-16.0) L 03/05/24 WBC 4.8 X10*3/uL (4.8-10.8) 03/05/24 Plt Count 308 X10*3/uL (160-400) 03/05/24 Sodium 140 mmol/L (135-145) 03/05/24 Potassium 4.0 mmol/L (3.3-5.1) 03/05/24 Chloride 102 mmol/L (96-108) 03/05/24 Carbon Dioxide 31 mmol/L (22-29) H 03/05/24 BUN 19 mg/dL (9-16) H 03/05/24 Creatinine 0.83 mg/dL (0.5-1.4) 03/05/24 Calcium 9.1 mg/dL (8.4-10.2) 03/05/24 Urine Protein Trace mg/dL (Neg-Trace) 02/26/24 Renal US 03/05/24 Assessment & Plan Assessment & Plan (1) Uncontrolled hypertension: Code(s): I10 - Essential (primary) hypertension Category: Medical (2) Tachycardia: Code(s): R00.0 - Tachycardia, unspecified Category: Medical Plan 43 year old with worsening hypertension despite significant (intentional) weight loss over the last year. given family history and young age of onset of HTN, will get renal ultrasound to rule out renal artery stenosis, FMD. pt also with unexplained tachycardia, will check catecholamines for possible adrenal issue. patient's blood pressure is low today. Given she has some continued elevated blood pressure readings at home today, will get 24 hour ambulatroy blood pressure monitor. She is asymptomatic; advised if her blood pressure drops too low, or if she develops symptoms of low blood pressure including dizziness/lightheadedness, she should hold her lisinopril. patient will return in 1-2 weeks 02/27/24 DC Amlopine Change Lisinopril to 20 mg Q PM 04/05/24 BP 80/50 STOP LISINOPRIL 20 mf AND HCTZ 25 mg QD Keep Propanolol Watch BP at home If SBP > 140, restart Lisinopril at 10 mg QD and call me Coding Level of Care Code Est Pt Level 4 (43718) Diagnoses Uncontrolled hypertension I10 Tachycardia R00.0
== END 2024-04-05 15:43 | disposition home or self-care (01) ==
PROVIDERS: PCP Nurse Practitioner Family; Visit Provider Internal Medicine Hypertension Specialist
DX: I10 Essential (primary) hypertension (principal); R00.0 Tachycardia, unspecified
CPT/HCPCS: 99214

== ENCOUNTER → 2024-04-05 15:17 | Outpatient (BNVA) | payer OTHER, SELFPAY | PROVIDERS: PCP Nurse Practitioner Family; Visit Provider Internal Medicine Hypertension Specialist | DX: I10 Essential (primary) hypertension (principal); R00.0 Tachycardia, unspecified | CPT/HCPCS: 99212 ==

== ENCOUNTER 2024-05-31 14:17 | Outpatient (AMB) | payer OTHER, SELFPAY ==
[2024-05-31 14:21] VITALS: BP 118/76; PULSE 106; O2SAT 96; BMI 28.2
--- NOTE | 2024-05-31 14:21 | HO.NEPHOV_ITS ---
Vital Signs 05/31/24 14:21 Height 5 ft 2 in Weight 154 lb BMI 28.2 BP 118/76 Blood Pressure Location Rt brachial Position Sitting Pulse 106 H Pulse Source Pulse Oximeter Pulse Oximetry (%) 96 Oxygen Delivery Method Room Air Intake Visit Reasons: 6wk follow up no labs/ Conf Weigher Alloy Required: No Accompanied by: Self / Same As Patient Allergies sumatriptan [Imitrex] Allergy (Unknown, Verified 04/05/24 15:23) tachycardia tramadol [Ultram] Allergy (Unknown, Verified 04/05/24 15:23) nausea Medication List - Last Reconciled 05/31/24 by Dandy Covarrubias MD albuterol sulfate 90 mcg/actuation 2 puffs inhalation Q6H PRN fluticasone propionate 110 mcg/actuation (Flovent HFA) 2 puffs inhalation DAILY 30 days hydrochlorothiazide 12.5 mg PO DAILY 30 days levalbuterol tartrate 45 mcg/actuation (Xopenex HFA) 2 puffs inhalation Q6H PRN 30 days lisinopril 20 mg PO DAILY pantoprazole 40 mg PO DAILY propranolol 20 mg PO BID 90 days trazodone 50 mg PO BEDTIME PRN 30 days HPI Comments Details: Pt is a 43 y/o female with a PMH of uncontrolled HTN, restrictive lung disease, ROXANA (mild, does not need mask), pulmonary HTN who presents today for evaluation of poorly controlled blood pressure. she is currently taking lisinopril 40mg daily, hctz 12.5mg daily, amlodipine 2.5mg daily and propranolol 20mg BID for blood pressure control. blood pressure controlled for 30mg lisinopril and 10mg propranolol daily for 13 years. then January 20 had headache when she woke up, BP was elevated, had not been taking medication, started taking and BP did not improve. Since that time, PCP then has been increasing doses/added meds weekly based on continued elevation in BP. this past Friday the readings were still high, so then he added hctz 12.5mg 3 days ago. Reports always gets a left-sided headache with left-sided neck pain when her blood pressure increases. Elevated blood pressures started in her 20s. 2 brothers, both have high blood pressure as younger adults mother has high blood pressure, stroke 5 years ago (from HTN), widespread arthritis. father passed from bladder cancer, but had HTN as well recently lost 60-70lbs, gradually with healthy diet since July 2022. Gastric bypass long before 8 years ago did not help her lose weight. since 2019 lots of breathing issues- reports since covid-19 infection, seeing pulmonology for restrictive lung disease. reports since that time has had tachycardia- wakes up with pulse with waking in 120s. reports her PCP is doing a holter monitor. 04/05/24 HAving LOW BP And lightheaded 05/31/2024. For a while she was not taking lisinopril and hydrochlorothiazide. She has been monitoring her blood pressure at home and blood pressure has been gradually increasing therefore she was started taking lisinopril 20 mg a day. She feels well without any lightheadedness. 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 Lungs entry equal no rales. Heart S1-S2 heard no gallop or rub. Abdomen soft nontender. Neuro alert awake oriented. No asterixis. Extremities no edema. Results Reviewed Nephrology Results: Hgb 11.5 g/dl (12.0-16.0) L 03/05/24 WBC 4.8 X10*3/uL (4.8-10.8) 03/05/24 Plt Count 308 X10*3/uL (160-400) 03/05/24 Sodium 140 mmol/L (135-145) 03/05/24 Potassium 4.0 mmol/L (3.3-5.1) 03/05/24 Chloride 102 mmol/L (96-108) 03/05/24 Carbon Dioxide 31 mmol/L (22-29) H 03/05/24 BUN 19 mg/dL (9-16) H 03/05/24 Creatinine 0.83 mg/dL (0.5-1.4) 03/05/24 Calcium 9.1 mg/dL (8.4-10.2) 03/05/24 Renal US 03/05/24 Assessment & Plan Assessment & Plan (1) Uncontrolled hypertension: Code(s): I10 - Essential (primary) hypertension Category: Medical (2) Tachycardia: Code(s): R00.0 - Tachycardia, unspecified Category: Medical Plan 43 year old with worsening hypertension despite significant (intentional) weight loss over the last year. given family history and young age of onset of HTN, will get renal ultrasound to rule out renal artery stenosis, FMD. pt also with unexplained tachycardia, will check catecholamines for possible adrenal issue. patient's blood pressure is low today. Given she has some continued elevated blood pressure readings at home today, will get 24 hour ambulatory blood pressure monitor. She is asymptomatic; advised if her blood pressure drops too low, or if she develops symptoms of low blood pressure including dizziness/lightheadedness, she should hold her lisinopril. patient will return in 1-2 weeks 02/27/24 DC Amlopine Change Lisinopril to 20 mg Q PM 04/05/24 BP 80/50 STOP LISINOPRIL 20 mg AND HCTZ 25 mg QD Keep Propanolol Watch BP at home If SBP > 140, restart Lisinopril at 10 mg QD and call me 05/31/24 On Lisinopril 20 mg QD BP is well controlled Encouraged her to keep monitoring her blood pressure at home. She can take lisinopril 20 g in the morning and add 10 or 20 mg in the evening if she has any spike in blood pressure. No need for hydrochlorothiazide at this time. All questions were answered Medications: Changed From lisinopril 20 mg PO DAILY 30 tabs 2RF To lisinopril 10 mg PO BID 60 tabs 6RF Discontinued hydrochlorothiazide Discontinued Reason: Patient no longer taking 12.5 mg PO DAILY 30 days 30 tabs 1RF Coding Level of Care Code Est Pt Level 4 (86243) Diagnoses Uncontrolled hypertension I10 Tachycardia R00.0
== END 2024-05-31 14:42 | disposition home or self-care (01) ==
PROVIDERS: PCP Nurse Practitioner Family; Visit Provider Internal Medicine Hypertension Specialist
DX: I10 Essential (primary) hypertension (principal); R00.0 Tachycardia, unspecified
CPT/HCPCS: 99214

== ENCOUNTER → 2024-05-31 14:17 | Outpatient (BNVA) | payer OTHER, SELFPAY | PROVIDERS: PCP Nurse Practitioner Family; Visit Provider Internal Medicine Hypertension Specialist | DX: I10 Essential (primary) hypertension (principal); R00.0 Tachycardia, unspecified | CPT/HCPCS: 99212 ==

== ENCOUNTER 2025-01-25 11:12 | Outpatient (AMB) | payer OTHER, SELFPAY ==
[2025-01-25 11:19] VITALS: BP 130/98; PULSE 76; RESP 16; O2SAT 96; BMI 24.9
--- NOTE | 2025-01-25 11:19 | A.OFFPC_ITS ---
Vital Signs 01/25/25 11:19 Height 5 ft 2 in Weight 136 lb BMI 24.9 BP 130/98 H Blood Pressure Location Lt brachial Position Sitting Respiration 16 Pulse 76 Pulse Source Pulse Oximeter Pulse Oximetry (%) 96 Oxygen Delivery Method Room Air Intake Visit Reasons: follow up Traveler Changer Required: No Accompanied by: Self / Same As Patient Allergies sumatriptan (Imitrex) Allergy (Unknown, Verified 01/25/25 11:21) tachycardia tramadol (Ultram) Allergy (Unknown, Verified 01/25/25 11:21) nausea Medication List - Last Reconciled 01/25/25 by Newton Forde, PROJECT ENGINEERING MANAGER- lisinopril 10 mg PO BID propranolol 20 mg PO BID 90 days semaglutide 2 mg subcut QWEEK trazodone 50 mg PO BEDTIME PRN 30 days Tobacco use date assessed: 01/25/25 Dental Screening Dental Screen Date: 01/20/24 HPI follow up HPI Details History of Present Illness The patient is a 44-year-old female presenting for a routine check-up and management of hypertension. She has a history of hypertension and is currently under the care of a ground surveillance systems operator. Her diastolic blood pressure was noted to be slightly elevated during the visit. The patient has successfully lost weight through the use of a GLP-1 agonist, combined with exercise and dietary modifications. She reports doing quite well with this regimen. Health Maintenance - Mammogram is up to date Social History - Exercise: Engages in regular physical activity as part of weight management - Diet: Following dietary modifications for weight loss Review of Systems - Respiratory: Denies dyspnea, fever, or chills - Gastrointestinal: Denies abdominal zo n, constipation, diarrhea, or blood in stool - Psychiatric: Denies suicidal or homici ting ideation Physical Exam General: Cooperative, healthy appearing, comfortable, no acute distress and well developed Orientation: Patient oriented x3 Limitations: No limitations Head: Normal to inspection Ears: Hearing grossly normal bilaterally Nose: Normal external nose present Face and sinus: Normal facial exam Eyes: Appearance normal, both eyes and all related structures Neck: Normal visual inspection and Yes full ROM Respiratory: Normal respiratory effort and able to speak in complete sentences. Clear to auscultation bilaterally Cardiovascular: Regular rate and rhythm. Normal S1 and S2 GI: Normal to inspection. Soft to palpation and nontender Skin: No rashes or lesions noted Neuro: Patient oriented x3 Extremities: Normal to inspection Results Plan 1. Hypertension The patient is advised to monitor her blood pressure at home and report the readings via the patient portal. Continued management under the care of a ground surveillance systems operator is recommended. 2. Preventative Care The patient's mammogram is up to date, indicating adherence to recommended screening guidelines. Discussion Notes I discussed with the patient the importance of monitoring her blood pressure at home and sending the readings through the patient portal for ongoing management of her hypertension. We also reviewed her current weight management strategy, which includes the use of a GLP-1 agonist, exercise, and dietary changes, and acknowledged her success in this area. Patient Instructions - Monitor blood pressure at home and sen d readings via the patient portal. - Continue current weight management eric n with GLP-1 agonist, exercise, and diet. 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 1. Little interest or pleasure in doing things: not at all 2. Feeling down, depressed, or hopeless: not at all 3. Trouble falling or staying asleep, or sleeping too much: not at all 4. Feeling tired or having little energy: not at all 5. Poor appetite or overeating: not at all 6. Feeling bad about yourself - or that you are a failure or have let yourself or your family down: not at all 7. Trouble concentrating on things, such as reading the newspaper or watching television: not at all 8. Moving or speaking so slowly that other people could have noticed. Or the opposite - being so fidgety or restless that you have been moving around a lot more than usual: not at all 9. Thoughts that you would be better off or of hurting yourself in some way: not at all Total score: 0 Depression Screening Interpretation: Negative Depression Screening Done: Yes [id number] - PHQ-9 Billing: Yes Source: Developed by Drs. Jesse Singleton, Muna Cain, Wood Vega and colleagues, with an educational meg from [employer]. Thrive Questionnaire Date Thrive assessed: 01/18/25 I am a: Patient What is your living situation today?: I have a steady place to live Within the past 12 months, did the food you bought not last and you didn't have the money to get more?: Never true Within the past 12 months, did you worry whether your food would run out before you got money to buy more?: Never true Do you have trouble paying for medicines?: No Do you have trouble getting transportation to medical appointments?: No Do you have trouble paying your heating and electricity bill?: No Do you have trouble taking care of your child, family member or friend?: No Do you have trouble with day-to-day activities such as bathing, preparing meals, shopping, managing finances, etc.?: No Are you currently unemployed and looking for a job?: No Are you interested in more education?: No Please select the resources that you would like help with: None Currently or been in a relationship where the following occur: No concerns reported THRIVE Score: 0 AUDIT C Alcohol Use Questionnaire (AUDIT-C) 1. How often do you have a drink containing alcohol?: Monthly or less 2. How many drinks containing alcohol do you have on a typical day when you are drinking?: 3 or 4 3. How often do you have six or more drinks on one occasion?: Never Total Score: 2 Score Reviewed/Action Taken: Yes MARY ELLEN-7 AMB Questionnaire MARY ELLEN-7 Date MARY ELLEN - 7 assessed: 01/25/25 Feeling nervous, anxious, or on edge: 0 = Not at all Not being able to stop or control worryin = Not at all Worrying too much about different things: 0 = Not at all Trouble relaxin = Not at all Being so restless that it is hard to sit still: 0 = Not at all Becoming easily annoyed or irritable: 0 = Not at all Feeling afraid as if something awful might happen: 0 = Not at all Total MARY ELLEN-7 score (0-4 normal; 5-9 mild; 10-14 moderate; 15-21 severe): 0 Source: Developed by Drs. Jesse Singleton, Muna Cain, Wood Vega and colleagues, with an educational meg from [employer]. MARY ELLEN-7 Assessment Billing MARY ELLEN-7 Assessment Tool: MARY ELLEN-7 Assessment 32148 Physical exam (Primary Care) Vital Signs: Last Vital Signs Pulse 76 01/25/25 11:19 Resp 16 01/25/25 11:19 BP 130/98 H 01/25/25 11:19 Pulse Ox 96 01/25/25 11:19 Oxygen Delivery Method Room Air 01/25/25 11:19 BMI result Body Mass Index 24.9 Tobacco/Smoking Status: Tobacco use Status Tobacco use date assessed 01/25/25 01/25/25 11:25 Patient Tobacco Use Status Former Tobacco user 01/25/25 11:25 e-Cigarette/Vaping Use Never Used 01/25/25 11:25 PHQ-9: PHQ-9 Score PHQ-9: Total score 0 01/25/25 11:25 Depression Screening Interpretation: Negative Thrive Assessment: Date of Thrive Assessment Date Thrive assessed 01/18/25 01/25/25 11:25 Currently or been in a relationship where the following occur: No concerns reported Coding Level of Care Code Est Pt Prev Care 40-64y(91625) Diagnoses Physical exam Z00.00 Additional Codes MARY ELLEN-7 Assessment Billing - MARY ELLEN-7 Assessment Tool: MARY ELLEN-7 Assessment [id number] ([id number]) PHQ-9 - 22007 - PHQ-9 Billing: Yes ([id number]) Assessment & Plan Assessment & Plan (1) Physical exam: Code(s): Z00.00 - Encounter for general adult medical examination without abnormal findings Category: Medical Plan . Orders: Orders Complete Blood Count Auto Diff Today Z00.00 - Encounter for general adult medical examination without abnormal findings TSH reflex Free T4 Today Z00.00 - Encounter for general adult medical examination without abnormal findings UA CC w/rflx Micro + Cult Today Z00.00 - Encounter for general adult medical examination without abnormal findings Comprehensive [place]. Panel Fast Today Z00.00 - Encounter for general adult medical examination without abnormal findings Lipid Panel Today Z00.00 - Encounter for general adult medical examination without abnormal findings
--- OUTSIDE RECORDS SUMMARY | 2025-01-25 13:36 | XMS_ITS | Patient Health Record ---
[facility] Organization [facility] Address [address] [place] [id number] Care Team Providers Care Hopper Feeder Name Role Phone Spencer Clinton Jr Reason For Referral No Information Plan Of Treatment No Information
== END 2025-01-25 13:51 | disposition home or self-care (01) ==
PROVIDERS: PCP Nurse Practitioner Family; Visit Provider Nurse Practitioner Family
DX: Z00.00 Encounter for general adult medical examination without abnormal findings (principal)

== ENCOUNTER → 2025-01-25 11:12 | Outpatient (BNVA) | payer OTHER, SELFPAY | PROVIDERS: PCP Nurse Practitioner Family; Visit Provider Nurse Practitioner Family | DX: Z00.00 Encounter for general adult medical examination without abnormal findings (principal); I10 Essential (primary) hypertension | CPT/HCPCS: 96127; 99396 ==

== ENCOUNTER → 2025-02-21 16:00 | Outpatient (BNV) | payer OTHER, SELFPAY | PROVIDERS: PCP Nurse Practitioner Family; Visit Provider Internal Medicine | DX: Z12.31 Encounter for screening mammogram for malignant neoplasm of breast (principal) | CPT/HCPCS: 77063; 77067 ==

== ENCOUNTER 2025-02-21 16:01 | Outpatient (REF) | payer OTHER, SELFPAY | END 2025-02-21 16:02 | disposition home or self-care (01) | LOC: HO.MAMMO 16:01 | PROVIDERS: PCP Nurse Practitioner Family; Visit Provider Nurse Practitioner Family | DX: Z12.31 Encounter for screening mammogram for malignant neoplasm of breast (principal) | CPT/HCPCS: 77063; 77067 ==